=== PATIENT | female | born 1960 | race Caucasian/White ===

== ENCOUNTER 2016-11-30 07:11 | Inpatient (IN) | payer OTHER ==
[~2016-11-30] VITALS: Ht 157.5 cm; Wt 61.2 kg
--- NOTE | ~2016-11-30 | S ---
[facility] [place] [address] SURGICAL PATH RPT PROCEDURE Name: MAIDA BEE Room #: 431-P ADM IN M.R.#: [id number] Admission: 11/30/16 Date of : 64 Discharge: Report #: [id number] Path Case #: [id number] PATHOLOGY REPORT COLLECTION DATE: 12/03/2016 RECEIVED DATE: 12/03/2016 SUBMITTING PHYS: Dr. Monroe Reddy, OTHER PHYS: Dr. Francisco Javier Oquendo SPECIMEN(S) RECEIVED: A.Subcutaneous sacral fat and soft tissue B.Ileum and cecum * * * * * * * * * * * * FINAL DIAGNOSIS: A. "Subcutaneous sacral fat and soft tissue," debridement: - Skin and subcutaneous tissue with acute and chronic inflammation, necrosis, granulation tissue, fat necrosis, pseudoepitheliomatous hyperplasia and dystrophic calcification (see comment). B. "Ileum and cecum," resection: - Cecum - large bowel, 15.5 cm, showing colonic mucosa, submucosa, and muscular wall with reactive changes including pigmented lamina propria macrophages, edema, congestion, mild ischemia, and serosal reactive changes/fibrous adhesions. - Ileum - small bowel, 4.0 cm, with small bowel mucosa, submucosa, and muscular wall showing pigmented lamina propria macrophages, edema, vascular congestion, and reactive mesothelial changes. - Appendix with fibrous obliteration. COMMENT: Within specimen A, the pattern of inflammation is suggestive of necrotizing fascitis. Within specimen B, the scattered pigmented macrophages within the lamina propria of the large bowel/cecum are histologically suggestive of melanosis coli. No dysplasia is seen. Clinical and potentially endoscopic/surgical correlation is recommended. (CLW:; 12/07/2016) PATHOLOGIST: Celia Caldera M.D. REPORT ELECTRONICALLY SIGNED BY: Celia Caldera M.D. DATE/TIME: 12/07/2016 21:13 * * * * * * * * * * * * [address] [address] SURGICAL PATH RPT PROCEDURE Name: JEANNETTE BEELOREN Raphael Room #: 431-P [facility] IN ..#: [id number] Admission: 11/30/16 Date of : 64 Discharge: Report #: [id number] Path Case #: [id number] GROSS PATHOLOGY: A. The specimen is received in formalin, labeled "Maida Bee, subcutaneous sacral fat and soft tissue" are three irregular, unoriented fragments of brown menchaca, wrinkled, rubbery skin and subcutaneous tissue measuring 1.5 x 8.5 x 1.5 cm in aggregate. The skin surfaces show areas of ulceration, desiccation and necrosis. The underlying fibromuscular tissue shows areas of menchaca-green, discoloration and softening. Areas of friability and menchaca white chalky tissue are also identified. No additional abnormalities are noted. Mix House Operator sections are submitted in cassette A1. B. The specimen is received in formalin, labeled "Maida Bee, ileum and cecum" is a distended, congested right hemicolectomy specimen consisting of terminal ileum, cecum and right colon, appendix and associated adipose tissue. Each margin is closed with a line of boris. The segment of terminal ileum measures 4.0 cm in length and maximal diameter of 2.0 cm. The segment of cecum and right colon measures 15.5 cm in length with a maximum diameter 6.3 cm. The lumen contains tejada-green, semisolid fecal material. The mucosa of the terminal ileum is tejada-green, velvety and fecal stained. The cecum has a dusky, purple-red, flattened and diffusely congested appearance. The wall thickness ranges from 0.2-0.4 cm. No mass lesions are transmural defects are identified. The mucosa shows focal edematous and ragged areas. The attached appendix measures 4.5 cm in length with a maximum diameter of 0.3 cm. No distinct abnormalities are noted grossly. The present of sections are submitted as follows: B1 - proximal margin B2 - distal margin B3 - appendix B4 - ileocecal valve B5-B6 - distended cecum and right colon. (ALEX; 12/04/2016) CLINICAL HISTORY: Sacral decubitus ulcer, abdominal washout INITIAL CPT CODE(S): A; 00115 B; 27526, 64159 Professional services performed by [employer] at [address], [place] [address] Technical services performed by [employer] at [address] [place] [address], [address] [address]. MONROE REDDY [facility] [address] [place] [address] SURGICAL PATH RPT PROCEDURE Name: MAIDA BEE Room #: 431-P [facility] IN M.R.#: [id number] Admission: 11/30/16 Date of : 64 Discharge: Report #: [id number] Path Case #: [id number] [facility] [address] [address] PHONE: [phone] DIRECTOR: Gonzalez Casey M.D. * * * END OF REPORT * * *
--- NOTE | ~2016-11-30 | HC ---
[facility] [address] [address] CONSULTATION Name: GIFTY VERDIN Room #: 431-P [facility] IN .R.#: [id number] Admission: 11/30/16 Attend Phys: Sagar Cedeno MD Discharge: Date of : 64 Report #: [id number] THIS REPORT FOR: //name// CC: Ishan [facility]un[facility] hospital[facility] DATE OF SERVICE: 12/01/2016 WOUND CARE CONSULTATION REASON FOR CONSULTATION: Necrotic sacral pressure ulcer, admitted yesterday from wound care clinic. HISTORY OF PRESENT ILLNESS: The patient is an unfortunate 56-year-old woman chronically residing in [facility]. 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 She has been chronically debilitated and immobile. The patient was seen yesterday in wound care clinic, noted to have a necrotic sacral pressure sore, admitted to the hospital for IV antibiotics and possible surgical therapy. PAST MEDICAL HISTORY: Significant for encephalitis and encephalomyelitis in the past, status post cerebrovascular accident with right hemiplegia; history of respiratory infections; history of insomnia; history of muscle spasm and neck contractures; history of anxiety disorder and history of meningitis. ALLERGIES: CODEINE, OPIATE and SULFATES. HOME MEDICATIONS: Include Celexa, DuoNeb, gabapentin, hydrocodone, Maalox, Megace, meloxicam, multiple vitamins, probiotics, Tylenol and Xanax. SOCIAL HISTORY: The patient does not smoke or drink alcohol. REVIEW OF SYSTEMS: Not obtainable. The patient is nonverbal. PHYSICAL EXAMINATION: GENERAL: Shows a chronically debilitated woman with contractures of the upper and lower extremities. She is nonverbal and noncommunicative. HEENT: Mucous membranes are moist. LUNGS: Respirations are unlabored. ABDOMEN: Soft. Baclofen pump is present subcutaneously in the abdomen. EXTREMITIES: Upper and lower extremities show contracture without wounds. SKIN: Examination of the patient's lower back shows in the sacral area, a 5 cm x 4 cm salvador, malodorous, full-thickness necrotic deep tissue injury pressure sore, most consistent with likely stage IV pressure injury. There is a [facility] [address] [place] [address] CONSULTATION Name: GIFTY VERDIN Room #: 431-P [facility] IN [facility]#: [id number] Admission: 11/30/16 Attend Phys: Sagar Cedeno MD Discharge: Date of : 64 Report #: [id number] odor and localized purulence. Depth and extent of the pressure injury cannot be fully assessed from the cutaneous wound. LABORATORY DATA: White blood count 13.2, hemoglobin 8.5, hematocrit 26.1 and platelets 513,000. Sodium 139, potassium 4.1 and creatinine 0.6. White blood count on admission was 14.6. Albumin 1.8. IMPRESSION: 1. Status post cerebrovascular accident with right hemiplegia. 2. History of encephalitis and encephalomyelitis. 3. Chronic debility and immobility. 4. The patient is noncommunicative and nonverbal. 5. Severe protein-calorie malnutrition. Albumin 1.8. 6. Sacral stage IV pressure ulcer with necrosis. There is deep tissue injury with indeterminate depth of necrosis. PLAN: IV antibiotics, Zosyn and vancomycin. We will obtain consent for excisional debridement of sacral pressure ulcer in the operating room and excision of skin, subcutaneous tissue, muscle, fascia and bone to rule out osteomyelitis. This will be scheduled for 11:00 in the morning at [facility] OR by Dr. Rome Sr, on 12/02/2016. ____ Dakin's packing of the wound until surgical debridement. <ELECTRONICALLY SIGNED> By: Rome Sr MD 12/06/16 1225 1030 1054 Rome Sr MD /nt
--- NOTE | ~2016-11-30 | EKG ---
[address] [address] ELECTROCARDIOGRAM REPORT Name: VELVETGIFTY Ijeoma Room #: 431- ADM IN M.R.#: [id number] Admission: 11/30/16 Attend Phys: Sagar Cedeno MD Discharge: Date of : 64 Report #: [id number] THIS REPORT FOR: //name// [facility] Test Date: 2016-12-01 Test Time: 09:57:01 Pat Name: GIFTY VERDIN Department: Room: 431 Gender: F Grade Recorder: : [id number] Requested By: Monroe Reddy Order Number: [id number] MD: Donavon Hannah Measurements Intervals [place] Rate: 94 P: 1 OR: 125 QRS: 23 QRSD: 61 T: QT: 470 QTc: 588 Interpretive Statements Sinus rhythm Nonspecific ST and T wave abnormality Prolonged QT interval Compared to ECG 07/19/2007 20:16:16 Heart rate has slowed Nonspecific change in the ST and T-wave segments Electronically Signed On 12-02-2016 7:50:18 CDT by Donavon Hannah [email or web address] <ELECTRONICALLY SIGNED> By: Donavon Hannah MD, [facility] 12/02/16 0750 [id number] Donavon Hannah MD, [facility] /EPI
--- NOTE | ~2016-11-30 | H ---
[facility] [address] [place] [address] HISTORY AND PHYSICAL Name: GIFTY VERDIN Room #: 431-P [facility] IN .R.#: [id number] Admission: 11/30/16 Attend Phys: Sagar Cedeno MD Discharge: Date of : 64 Report #: [id number] THIS REPORT FOR: //name// CC: Ishan Briscoey [facility] DATE OF SERVICE: 11/30/2016 CHIEF COMPLAINT: Sacral decubitus ulcer. History was primarily obtained from reviewing the notes from the wound care clinic and also from the intermediate and also talking to Dr. Cedeno. The patient is nonverbal. HISTORY OF PRESENT ILLNESS: The patient is a 56-year-old female with history of encephalitis, encephalomyelitis with residual right-sided hemiplegia, bedridden, was actually evaluated by Dr. Cedeno for sacral decubitus ulcer. The patient was subsequently admitted because of the infected sacral decubitus ulcer. The patient also needs surgical debridement. The patient denies any symptom at present. No pain. No nausea or vomiting, no abdominal pain. PAST MEDICAL HISTORY: Significant for encephalitis and encephalomyelitis. Has language deficit. Insomnia, has had respiratory infection in the past, muscle spasm, ulcers, anxiety disorder, CVA and meningitis. ALLERGIES: She is allergic to CODEINE, OPIATE and SULFATE. HOME MEDICATIONS: Reviewed, please look at the nursing documentation. SOCIAL HISTORY: Ex-smoker, no alcohol abuse or illicit drug abuse. The patient is a intermediate resident. FAMILY HISTORY: Noncontributory for this admission. REVIEW OF SYSTEMS: Limited because of the patient being nonverbal. PHYSICAL EXAMINATION: VITAL SIGNS: Blood pressure 90/51, heart rate of 99 per minute, afebrile. GENERAL: The patient is awake and alert, not in acute respiratory distress. She follows some simple commands. EYES: Pupils are equal, reactive to light. THROAT: Has a dry oral mucosa. NECK: Supple. No JVD, no bruit. CARDIOVASCULAR: S1, S2, negative S3, no murmur. CHEST: Bilateral air entry present. Clear on auscultation. [facility] [address] [place] [address] HISTORY AND PHYSICAL Name: GIFTY VERDIN Room #: 431-P [facility] IN [facility]#: [id number] Admission: 11/30/16 Attend Phys: Sagar Cedeno MD Discharge: Date of : 64 Report #: [id number] ABDOMEN: Soft, bowel sounds present, no mass, no organomegaly. There is a pump on the right upper quadrant, probably a baclofen pump. PERIPHERY: No pedal edema. Dorsalis pedis 1+. NEUROLOGICAL: The patient is not able to move her lower extremity or her right upper extremity. LABORATORY DATA: Pending. ASSESSMENT AND PLAN: Sacral decubitus ulcer. The ulcer was examined by the nursing staff. It is around 5 cm with necrotic area. There is mild erythema around the ulcer. The patient will be started on IV Zosyn and vancomycin. We will get blood cultures and wound culture. We will also consult Infectious Disease and Surgery. The patient will also be hydrated with IV fluids. She will be placed on SCD on the leg for DVT prophylaxis at present. We will follow cultures and adjust antibiotic as needed. The patient will be kept n.p.o. after midnight for possible surgical debridement. <ELECTRONICALLY SIGNED> By: Francisco Javier Mckinney MD 11/30/161934 16 32 Francisco Javier Mckinney MD /nt
[2016-11-30 18:20] VITALS: BP 90/51
[2016-11-30 19:24] LABS: ABSOLUTE NEUTROPHILS 11.6 thou/uL (1.4-8.2); BASOPHILS 0.2 % (0.0-2.0); EOSINOPHILS 1.3 % (0.0-3.0); HEMATOCRIT 25.8 % (37.0-47.0); HEMOGLOBIN 8.4 gm/dL (12.0-15.0); LYMPHOCYTES 14.6 % (24.0-44.0); MCH 31.8 pg (26.0-34.0); MCHC 32.7 g/dL (28.0-37.0); MCV 97.4 fL (80.0-100.0); MONOCYTES 4.4 % (1.0-8.0); PLATELET COUNT 508 thou/uL (150-400); POLYS 79.5 % (36.0-66.0); RBC 2.65 mil/uL (4.20-5.00); RDW 16.9 % (10.5-14.5); WBC 14.6 thou/uL (4.0-11.0)
[2016-11-30 19:30] LABS: MANUAL DIFF NO
[2016-11-30 19:35] LABS: CALCIUM 8.3 mg/dL (8.5-10.1); CREATININE 0.7 mg/dL (0.6-1.0); POTASSIUM 3.8 mmol/L (3.5-5.1)
[2016-11-30 19:39] LABS: APTT 38.2 Seconds (24.5-32.8); PROTIME 10.7 Seconds (9.3-11.4)
[2016-11-30 19:43] LABS: ALBUMIN 1.8 g/dL (3.4-5.0); TOTAL BILIRUBIN 0.4 mg/dL (<0.1-1.0)
[2016-11-30 22:45] VITALS: BP 82/61
[2016-11-30] MEDS ORDERED: LIDOCAINE 22 %/30 GM MM (23:17)
[2016-11-30] MEDS ORDERED: ABILIFY 2 MG2 M1 PO (23:18)
[2016-12-01 05:55] VITALS: BP 77/48
[2016-12-01 07:08] LABS: ABSOLUTE NEUTROPHILS 10.2 thou/uL (1.4-8.2); BASOPHILS 0.3 % (0.0-2.0); HEMATOCRIT 26.1 % (37.0-47.0); HEMOGLOBIN 8.5 gm/dL (12.0-15.0); LYMPHOCYTES 17.2 % (24.0-44.0); MANUAL DIFF NO; MCH 31.7 pg (26.0-34.0); MCHC 32.7 g/dL (28.0-37.0); PLATELET COUNT 513 thou/uL (150-400); POLYS 77.5 % (36.0-66.0); RDW 16.7 % (10.5-14.5); WBC 13.2 thou/uL (4.0-11.0)
[2016-12-01 07:25] LABS: CALCIUM 8.4 mg/dL (8.5-10.1); CREATININE 0.6 mg/dL (0.6-1.0); MAGNESIUM 1.9 mg/dL (1.8-2.4); POTASSIUM 4.1 mmol/L (3.5-5.1)
[2016-12-01] MEDS ORDERED: ALBUTEROL2.5 MG/31 INH (08:39)
[2016-12-01] MEDS ORDERED: ARTIFICIAL TEA1 EACH OP (08:40)
[2016-12-01] MEDS ORDERED: LIORESAL 10 MG10 MG PO (08:41)
[2016-12-01] MEDS ORDERED: CELEXA20 MG PO (08:42)
[2016-12-01] MEDS ORDERED: DULCOLAX10 MG RC (08:44)
[2016-12-01] MEDS ORDERED: NEURONTIN 300300 M1 PO (08:45)
[2016-12-01] MEDS ORDERED: HYDROCODONE-APA1 TA1 PO (08:46)
[2016-12-01] MEDS ORDERED: MAALOX MAXIMUM355 ML PO (08:48)
[2016-12-01] MEDS ORDERED: MEGESTROL40 MG/1 M1 PO (08:50)
[2016-12-01] MEDS ORDERED: MOBIC15 MG PO (08:51)
[2016-12-01] MEDS ORDERED: MUCINEX TA600 MG/TA2 PO (08:51)
[2016-12-01] MEDS ORDERED: UNICOMPLEX M TA1 TA1 PO (08:52)
[2016-12-01] MEDS ORDERED: MUSCLE RUB CRE113 G1 TP (08:57)
[2016-12-01] MEDS ORDERED: ZANTAC 150MG T150 MG PO (09:01)
[2016-12-01] MEDS ORDERED: SENNA8.6 MG PO (09:03)
[2016-12-01] MEDS ORDERED: TRAMADOL 50 MG50 MG PO (09:04)
[2016-12-01] MEDS ORDERED: TYLENOL EXTRA500 MG PO (09:06)
[2016-12-01] MEDS ORDERED: B12INJ IM (09:06)
[2016-12-01] MEDS ORDERED: VITAMINC500 PO (09:07)
[2016-12-01] MEDS ORDERED: VOLTAREN GEL 1100 G2 TP (09:09)
[2016-12-01 09:10] VITALS: BP 91/54
[2016-12-01] MEDS ORDERED: XANAX 0.5 MG0.5 MG PO (09:10)
[2016-12-01] MEDS ORDERED: ZINC SULFATE 2220 M1 PO (09:11)
[2016-12-01 12:45] LABS: ABSOLUTE RETIC COUNT 0.0418 10^6/uL; OBSERVED RETIC COUNT 1.54 % (0.6-2.6)
[2016-12-01 13:17] LABS: % SATURATION 8 % (20-39); IRON 9 ug/dL (50-170); TIBC 107 ug/dL (250-450); UIBC 98 ug/dL
[2016-12-01 13:47] LABS: FOLIC ACID 34.2 ng/mL (8.6-58.9)
[2016-12-01 17:36] VITALS: BP 92/55
[2016-12-02 05:13] VITALS: BP 94/60
[2016-12-02 05:22] LABS: ABSOLUTE NEUTROPHILS 7.4 thou/uL (1.4-8.2); BASOPHILS 0.3 % (0.0-2.0); EOSINOPHILS 2.1 % (0.0-3.0); HEMATOCRIT 24.6 % (37.0-47.0); HEMOGLOBIN 7.9 gm/dL (12.0-15.0); MCH 31.1 pg (26.0-34.0); MCHC 32.1 g/dL (28.0-37.0); MONOCYTES 5.9 % (1.0-8.0); PLATELET COUNT 506 thou/uL (150-400); POLYS 65.7 % (36.0-66.0); RBC 2.54 mil/uL (4.20-5.00); RDW 17.2 % (10.5-14.5); WBC 11.3 thou/uL (4.0-11.0)
[2016-12-02 05:27] LABS: MANUAL DIFF NO
[2016-12-02 08:02] VITALS: BP 97/56
[2016-12-02 15:41] VITALS: BP 101/64
[2016-12-02 19:21] VITALS: BP 95/57
[2016-12-03 04:13] VITALS: BP 82/51
[2016-12-03 04:24] LABS: URINE BILIRUBIN NEGATIVE (Negative); URINE BLOOD 2+ (Negative); URINE COLOR YELLOW; URINE GLUCOSE-RANDOM* NEGATIVE (Negative); URINE KETONES NEGATIVE (Negative); URINE LEUKOCYTES-REFLEX 3+ (Negative); URINE PROTEIN (DIPSTICK) 1+ (Negative); URINE UROBILINOGEN 0.2 E.U./dl (0.2-1.0)
[2016-12-03 05:04] LABS: SQUAMOUS >10 Many /LPF (0-3); URINE WBC-REFLEX >25 Many /HPF (0-5)
[2016-12-03 05:05] LABS: CASTS None Seen /LPF (None Seen); CRYSTALS None Seen /LPF (None Seen); URINE RBC 3-10 Few /HPF (0-2)
[2016-12-03 06:21] VITALS: BP 95/58
[2016-12-03 13:59] VITALS: BP 85/59
[2016-12-03 19:25] VITALS: BP 100/57
[2016-12-04] VITALS (7 sets, daily range): BP systolic 86–95; BP diastolic 49–57
[2016-12-04 04:03] LABS: HEMOGLOBIN 6.8 gm/dL (12.0-15.0); MCHC 32.3 g/dL (28.0-37.0)
[2016-12-04 04:06] LABS: ABSOLUTE NEUTROPHILS 10.8 thou/uL (1.4-8.2); BASOPHILS 0.1 % (0.0-2.0); EOSINOPHILS 0.1 % (0.0-3.0); HEMATOCRIT 21.1 % (37.0-47.0); LYMPHOCYTES 13.9 % (24.0-44.0); MCH 31.4 pg (26.0-34.0); MCV 97.2 fL (80.0-100.0); MONOCYTES 3.2 % (1.0-8.0); POLYS 82.7 % (36.0-66.0); RBC 2.17 mil/uL (4.20-5.00); RDW 16.5 % (10.5-14.5); WBC 13.1 thou/uL (4.0-11.0)
[2016-12-04 04:14] LABS: CALCIUM 7.6 mg/dL (8.5-10.1); CREATININE 0.5 mg/dL (0.6-1.0)
[2016-12-04 04:18] LABS: MANUAL DIFF NO; PLATELET COUNT 608 thou/uL (150-400)
[2016-12-04 04:24] LABS: POTASSIUM 2.5 mmol/L (3.5-5.1)
[2016-12-04 04:48] LABS: MAGNESIUM 1.5 mg/dL (1.8-2.4)
[2016-12-05 04:30] VITALS: BP 126/74
[2016-12-05 04:32] LABS: HEMATOCRIT 26.7 % (37.0-47.0); MCH 30.5 pg (26.0-34.0); MCHC 33.5 g/dL (28.0-37.0); PLATELET COUNT 621 thou/uL (150-400); RBC 2.93 mil/uL (4.20-5.00); RDW 19.6 % (10.5-14.5); WBC 17.8 thou/uL (4.0-11.0)
[2016-12-05 04:47] LABS: CALCIUM 7.8 mg/dL (8.5-10.1); CREATININE 0.7 mg/dL (0.6-1.0); POTASSIUM 3.1 mmol/L (3.5-5.1)
[2016-12-05 05:05] LABS: MANUAL DIFF YES
[2016-12-05 07:15] LABS: ABSOLUTE NEUTROPHILS 14.6 thou/uL (1.4-8.2); ANISOCYTOSIS 2+; POLYCHROMASIA OCCASIONAL; TOTAL CELL COUNT 100
[2016-12-05 07:16] LABS: HYPOCHROMASIA SLIGHT; POIKILOCYTOSIS SLIGHT
[2016-12-05 08:15] VITALS: BP 89/55
[2016-12-05 15:35] VITALS: BP 92/66
[2016-12-05 20:06] VITALS: BP 93/59
[2016-12-05 23:12] VITALS: BP 83/52
[2016-12-06 04:17] VITALS: BP 92/57
[2016-12-06 07:26] LABS: HEMATOCRIT 31.4 % (37.0-47.0); HEMOGLOBIN 10.2 gm/dL (12.0-15.0); MCHC 32.5 g/dL (28.0-37.0); MCV 92.4 fL (80.0-100.0); RBC 3.4 mil/uL (4.20-5.00); RDW 19.9 % (10.5-14.5); WBC 21.2 thou/uL (4.0-11.0)
[2016-12-06 07:36] LABS: ALBUMIN 1.3 g/dL (3.4-5.0); CALCIUM 7.9 mg/dL (8.5-10.1); CREATININE 0.9 mg/dL (0.6-1.0); PHOSPHORUS 2.4 mg/dL (2.5-4.9); POTASSIUM 3.5 mmol/L (3.5-5.1)
[2016-12-06 09:17] VITALS: BP 99/64
[2016-12-06 17:04] VITALS: BP 107/66
[2016-12-06 22:00] VITALS: BP 121/74
[2016-12-07] VITALS (8 sets, daily range): BP systolic 87–111; BP diastolic 61–70
[2016-12-07 06:48] LABS: HEMATOCRIT 28.8 % (37.0-47.0); HEMOGLOBIN 9.3 gm/dL (12.0-15.0); MCH 29.9 pg (26.0-34.0); MCHC 32.4 g/dL (28.0-37.0); MCV 92.5 fL (80.0-100.0); RBC 3.11 mil/uL (4.20-5.00); RDW 19.9 % (10.5-14.5); WBC 14.4 thou/uL (4.0-11.0)
[2016-12-07 07:04] LABS: ALBUMIN 1.4 g/dL (3.4-5.0); CALCIUM 7.9 mg/dL (8.5-10.1); CREATININE 0.7 mg/dL (0.6-1.0); POTASSIUM 3.3 mmol/L (3.5-5.1); TOTAL BILIRUBIN 0.4 mg/dL (<0.1-1.0); TOTAL PROTEIN 5.1 g/dL (6.4-8.2)
[2016-12-08 03:47] VITALS: BP 104/66
[2016-12-08 06:24] LABS: HEMATOCRIT 31.3 % (37.0-47.0); HEMOGLOBIN 10.2 gm/dL (12.0-15.0); MCH 29.8 pg (26.0-34.0); MCHC 32.6 g/dL (28.0-37.0); MCV 91.4 fL (80.0-100.0); RBC 3.43 mil/uL (4.20-5.00); RDW 19.8 % (10.5-14.5); WBC 13.3 thou/uL (4.0-11.0)
[2016-12-08 06:31] LABS: CALCIUM 8.2 mg/dL (8.5-10.1); CREATININE 0.9 mg/dL (0.6-1.0); POTASSIUM 4.1 mmol/L (3.5-5.1)
[2016-12-08 08:43] VITALS: BP 76/59
[2016-12-08] MEDS ORDERED: FENTANYL PA25 MCG/HR TRANSDERM (10:08)
[2016-12-08] MEDS ORDERED: ZOSYN 3.373.375 GM/1 IV (10:08)
[2016-12-08 15:25] VITALS: BP 92/64
== END 2016-12-08 19:55 | DRG 853 ==
LOC: HYPER 07:11 → 4E 17:33
PROVIDERS: Hospitalist; Internal Medicine; Nurse Practitioner; Surgery
DX: A41.9 Sepsis, unspecified organism (principal); E43 Unspecified severe protein-calorie malnutrition; L89.154 Pressure ulcer of sacral region, stage 4; G93.40 Encephalopathy, unspecified; K59.39 Other megacolon; M86.9 Osteomyelitis, unspecified; I69.351 Hemiplegia and hemiparesis following cerebral infarction affecting right dominant side; F41.9 Anxiety disorder, unspecified; I95.9 Hypotension, unspecified; D64.9 Anemia, unspecified; E87.6 Hypokalemia; E87.5 Hyperkalemia; Z88.6 Allergy status to analgesic agent; Z88.8 Allergy status to other drugs, medicaments and biological substances; Z68.24 Body mass index [BMI] 24.0-24.9, adult; Z87.891 Personal history of nicotine dependence; Z88.2 Allergy status to sulfonamides
CPT/HCPCS: 10783; 27000; 50010; 50093; 50101; 50386; 50403; 50455; 51708; 51712; 53353; 53354; 56524; 56527; 56528; 57092; 62110; 62900; 70005

== ENCOUNTER 2018-08-08 05:29 | Inpatient (IN) | payer OTHER ==
[~2018-08-08] VITALS: Ht 165.1 cm; Wt 73.0 kg
[~2018-08-08 05:29] MED LIST: ABILIFY 2 MG2 M1 PO; ALBUTEROL2.5 MG/31 INH; ALPRAZOLAM 0.0.25 M1 PO; ARTIFICIAL TEA1 EACH OPHTHALMIC; B12INJ IM; BANATROL PLUS1 EACH PER TUBE; CELEXA20 MG PO; CHEST CONGESTI400 MG PO; CHOLESTYRAMINE P4 GM PO; CRANBERRY200 MG PO; DULCOLAX10 MG RC; DURAGESIC1 EAC5 TOP; FENTANYL PA25 MCG/HR TRANSDERM; HYDROCODONE-APA1 TA1 PO; ICY HOT CREAM35.4 GM TOP; IMODIUM A-D2 M1 PO; ISOSOURCE 1.5250 ML PER TUBE; JUVEN PACKET1 EAC1 PER TUBE; LIDOCAINE30 GM TOP; LIORESAL 10 MG10 MG PO; MAALOX MAXIMUM355 ML PO; MEGESTROL40 MG/1 M1 PO; MOBIC15 MG PO; MUCINEX TA600 MG/TA2 PO; MUSCLE RUB CRE113 G1 TP; NEURONTIN 300300 M1 PO; ONDANSETRON HCL4 M2 PO; OXYCODONE HCL5 MG PO; PEPCID20 MG PO; PROBIOTIC1 EAC1 PO; REFRESH PLUS1 EACH OPHTHALMIC; SENNA8.6 MG PO; TRAMADOL 50 MG50 MG PO; TYLENOL EXTRA500 MG PO; UNICOMPLEX M TA1 TA1 PO; VITAMINC500 PO; VOLTAREN GEL 1100 G2 TP; WOMEN'S GENTLE L5 MG PO; XANAX 0.5 MG0.5 MG PO; ZANTAC 150MG T150 MG PO; ZINC SULFATE 2220 M1 PO; ZOFRAN ODT4 MG DISSOLVE; ZOSYN 3.373.375 GM/1 IV
[2018-08-08 07:45] VITALS: BP 120/87
--- NOTE | 2018-08-08 08:23 | EKG ---
[address] [address] ELECTROCARDIOGRAM REPORT Name: VELVETGIFTY F Room #: 150-2 ADM IN M.R.#: [id number] ������������������ Admission: 08/08/18 ������������������ Attend Phys: Monroe Barclay Discharge: ������������������ Date of : 64 Report #: [id number] ����������������������������������������������������������������� [id number] THIS REPORT FOR: //name// [facility] Test Date: 2018-08-08 Test Time: 07:40:40 Pat Name: GIFTY VERDIN Department: Room: 150 2 Gender: F Tree Trimmer Helper: ROSY : 1960 Requested By: Monroe Reddy Order Number: [id number] MD: Larry Keller Measurements Intervals [place] Rate: 62 P: 0 CA: 58 QRS: 17 QRSD: 131 T: 62 QT: 457 QTc: 464 Interpretive Statements Sinus rhythm Short CA interval Nonspecific intraventricular conduction delay Minimal ST elevation, inferior leads Compared to ECG 12/01/2016 09:57:01 Short CA interval now present Intraventricular conduction delay now present Prolonged QT interval no longer present ST (T wave) deviation still present Electronically Signed On 08-08-2018 8:23:01 CDT by Larry Keller [email or web address] ��������������������������������������������� <ELECTRONICALLY SIGNED> ���������������������������������������� By: Larry Kelelr MD ��������������������������������������������� 08/08/1823 9 9 Larry Keller MD /EPI
[2018-08-08 15:10] VITALS: BP 95/61
--- NOTE | 2018-08-08 18:30 | NUR ---
PT RECEIVED FROM REC RM AT 1140 AWAKE AND IN SOME PAIN. SISTER AT BEDSIDE. PT ALERT AND ABLE TO NOD FOR YES AND NO QUESTIONS. WRITES SOME ON TABLET. PAIN IN RT ABD RELIEVED W/ PAIN MEDS. TURNED Q2HRS. DR. VILLALOBOS CALLED TO INFORM RN OF PLAN. RETAINED STOOL IN COLON AND WILL KEEP ON SIPS OF WATER FOR NOW W/ IV FLUIDS TO ALLOW STOOL TO PASS. ABD DSNG DRY AND INTACT.
[2018-08-08 22:45] VITALS: BP 79/38
[2018-08-09 00:37] VITALS: BP 111/50
[2018-08-09 05:40] VITALS: BP 92/55
[2018-08-09 05:45] LABS: ABSOLUTE NEUTROPHILS 7.7 thou/uL (1.4-8.2); BASOPHILS 0.1 % (0.0-2.0); EOSINOPHILS 0.1 % (0.0-3.0); HEMATOCRIT 36.3 % (37.0-47.0); HEMOGLOBIN 11.8 gm/dL (12.0-15.0); MCH 31.6 pg (26.0-34.0); MCHC 32.4 g/dL (28.0-37.0); MCV 97.5 fL (80.0-100.0); MONOCYTES 6.4 % (1.0-8.0); PLATELET COUNT 325 thou/uL (150-400); POLYS 70.4 % (36.0-66.0); RBC 3.72 mil/uL (4.20-5.00); RDW 14.3 % (10.5-14.5)
[2018-08-09 05:57] LABS: CALCIUM 8.2 mg/dL (8.5-10.1); CREATININE 0.7 mg/dL (0.6-1.0); POTASSIUM 4.4 mmol/L (3.5-5.1)
[2018-08-09 08:50] VITALS: BP 79/52
[2018-08-09 13:30] VITALS: BP 107/51
--- NOTE | 2018-08-09 14:34 | NUR ---
FAXED CLINICAL UPDATE TO [facility] LEFT MSG SPOKE WITH BRAEDEN IN ADM. SHE RECEIVED UPDATE. DCP TO FOLLOW.
--- NOTE | 2018-08-09 15:38 | NUR ---
Patient was admitted on 08/08/18 for reverse Illiostomy. patient's arm is constricted but she uses well her right hand well. Patient is NPO till she passes gas and have BM. Patient takes meds with sip of water. posision changes q2hr. patient types on her phoen to communicate. pt. ia allerted and oriented. Patient incision was draing some blood and the nurses chunged the dressing and it has been good since then.
--- NOTE | 2018-08-09 15:43 | NUR ---
I have reviewed and concur with student documentation.
--- NOTE | 2018-08-09 16:45 | NUR ---
PT IN BED TURNED EVERY 2 HOURS. GIVEN PRN PAIN MEDS, IV ACSESS CHANGED. ABD DRESSING CHANGED AND DR VILLALOBOS CALLED TO NOTIFY OF ABD DRESSING CHANGE. IV ACSESS CHANGED TO RIGHT FOREARM. PT HAS HOSPITALIST AND DR VILLALOBOS SURGEON HERE TO SEE HER TODAY.
--- NOTE | 2018-08-09 17:06 | PATH ---
[facility] [address] [place] [address] PATHOLOGY RPT PROCEDURE Name: MAIDA BEE Room #: 432-P [facility] IN M.R.#: [id number] ������������������ Admission: 08/08/18 ������������������ Date of : 64 Discharge: Report #: [id number] Path Case #: [id number] [facility] Accession Number: [id number] . 01 Material submitted: . body - ILEOSTOMY . 01 Clinical history: . Ileostomy, chronic sacral ulcer . 02 Diagnosis: Small bowel, ileostomy: - Circular defect showing reactive changes along with congestion. - Fibrosis and focal serositis identified, history of adhesions. - Margins showing unremarkable mucosa. - Negative for dysplasia or malignancy. (IUV:retail selling specialist; 08/09/2018) MBR/08/09/2018 . 02 Electronically signed: . Inga Montilla MD, Pathologist NPI- [id number] . 01 Gross description: . The specimen is received in formalin, labeled "Maida Bee, ileostomy". Received is an unoriented segment of small bowel measuring 9.6 cm in length by 1.9 cm in diameter. Both margins are stapled closed. Near one margin, there is a large circular defect, and the serosa is torn, measuring 3.5 x 2.1 cm. The remainder of the serosal surface is pink-tejada in appearance with overlying adhesions. The attached mesenteric fat measures up to 2.7 cm in thickness. Opening the specimen reveals pink-tejada mucosa with normal architectural folds. No distinct nodules or lesions are noted grossly. . Also received within the specimen container is a segment of small bowel measuring 1.8 cm in length by 2.2 cm in diameter. One margin is stapled. The opposite margin displays exposed red-tejada mucosa, consistent with stoma, measuring 3.3 x 2.3 cm. The specimen is submitted representatively as follows: . A1 both margins from segment of small bowel A2 international representative sections through circular defect of small bowel A3 international representative cross-sections of small bowel A4 international representative section of separately submitted stoma. . Gross photographs are taken. (CAA; 08/08/2018) [address] [address] PATHOLOGY RPT PROCEDURE Name: MAIDA BEE Room #: 432-P ADM IN M.R.#: [id number] ������������������ Admission: 08/08/18 ������������������ Date of : 64 Discharge: Report #: [id number] Path Case #: [id number] QAC/QAC . 02 Pathologist provided ICD-10: K65.8 . 02 CPT . 520863 Specimen Comment: A courtesy copy of this report has been sent to Specimen Comment: [phone], . Specimen Comment: Report sent to / DR MUSTAFA Performed at: [address], [place], [place] [id number] MD Christiano Estrada MD Phone: [phone] Performed at: [address] [id number] MD Inga Montilla MD Phone: [phone]
[2018-08-09 20:45] VITALS: BP 87/47
[2018-08-09 23:00] VITALS: BP 89/49
[2018-08-10 05:33] LABS: BASOPHILS 0.3 % (0.0-2.0); EOSINOPHILS 0.2 % (0.0-3.0); HEMATOCRIT 26.9 % (37.0-47.0); LYMPHOCYTES 19.2 % (24.0-44.0); MCH 31.9 pg (26.0-34.0); MCHC 33.1 g/dL (28.0-37.0); MCV 96.6 fL (80.0-100.0); PLATELET COUNT 275 thou/uL (150-400); POLYS 74.3 % (36.0-66.0); RBC 2.78 mil/uL (4.20-5.00); RDW 14.2 % (10.5-14.5); WBC 10.8 thou/uL (4.0-11.0)
[2018-08-10 05:37] LABS: HEMOGLOBIN 8.9 gm/dL (12.0-15.0)
[2018-08-10 05:38] LABS: CALCIUM 8.1 mg/dL (8.5-10.1); CREATININE 0.5 mg/dL (0.6-1.0)
[2018-08-10 05:41] LABS: POTASSIUM 3.4 mmol/L (3.5-5.1)
[2018-08-10 07:51] LABS: APTT 33.1 Seconds (24.5-32.8); PROTIME 10.8 Seconds (9.3-11.4)
[2018-08-10 09:14] VITALS: BP 86/48
--- NOTE | 2018-08-10 10:39 | NUR ---
PT ADMITTED RELATED TO OPEN ILEOSTOMY REVERSAL. CM REVIEWED CHART AND SPOKE WITH CARE TEAM. 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 SHE INDICATED THAT PT HAD USED A WHEELCHAIR AND A RICKY LIFT TO GET ASSISTANCE WITH MOBILITY CONVERTIBLE SOFA BEDSPRING TESTER. PREET INDICATED PLAN IS FOR PT TO RETURN TO [facility] ONCE MEDICALLY STABLE. CM REQUESTED THAT DC CREEL CLERK FAX CLINICAL UPDATE TO FACILITY. CM TO FOLLOW INDICATED WITH DC PLANNING.
[2018-08-10 12:14] VITALS: BP 124/56; BP 95/60
[2018-08-10 19:25] VITALS: BP 120/64
--- NOTE | 2018-08-10 19:57 | NUR ---
PT A&OX3, NON VERBAL. IV INTACT IN R HAND INFUSING FLUIDS W/O COMPS. NON AMB., PT HAD BLEEDING FROM INCISION LAST NOC THOUGH NO FURTHER BLEEDING SINCE MY COMPRESS DRSG CHANGE THIS AM. SUPPOSITORY GIVEN WITH NO RESULTS. 1 UNIT PACKED RED BLOOD CELLS GIVEN ORDERED. PLANS ARE TO START PT ON A DIET TOMMARO.
--- NOTE | 2018-08-11 01:35 | NUR ---
PT NOT SLEEPING, VERY ANXIOUS, TURNED AND REPOSITIONED AND GETS UPSET EASILY IF HER NEEDS ARE NOT UNDERSTOOD DUE TO COMMUNICATION BARRIER. BOTH FEET ON OFF CORRECTIONAL PROGRAM OFFICER BOOTS, SCDS TOBLE, INCONTINENT, PERICARE GIVEN, TOOK MEDS WHOLE WITH SIP OF WATER, COMMUNICATE USING TEXT VIA PHONE, ALERT/ORIENTED, ORAL CARE GIVEN, HOURLY ROUNDING, MONITORED.
[2018-08-11 04:36] VITALS: BP 124/76
[2018-08-11 05:11] LABS: ABSOLUTE NEUTROPHILS 7.8 thou/uL (1.4-8.2); BASOPHILS 0.2 % (0.0-2.0); EOSINOPHILS 1.4 % (0.0-3.0); HEMATOCRIT 31.4 % (37.0-47.0); HEMOGLOBIN 10.5 gm/dL (12.0-15.0); LYMPHOCYTES 16.3 % (24.0-44.0); MCH 31.3 pg (26.0-34.0); MCHC 33.4 g/dL (28.0-37.0); MCV 93.7 fL (80.0-100.0); MONOCYTES 5.7 % (1.0-8.0); PLATELET COUNT 300 thou/uL (150-400); POLYS 76.4 % (36.0-66.0); RBC 3.35 mil/uL (4.20-5.00); RDW 15.3 % (10.5-14.5); WBC 10.2 thou/uL (4.0-11.0)
[2018-08-11 05:25] LABS: CALCIUM 8.5 mg/dL (8.5-10.1); CREATININE 0.5 mg/dL (0.6-1.0); POTASSIUM 3.3 mmol/L (3.5-5.1)
[2018-08-11 08:11] VITALS: BP 103/55
[2018-08-11 16:22] VITALS: BP 107/61
[2018-08-11 20:18] VITALS: BP 117/72
--- NOTE | 2018-08-12 04:48 | NUR ---
ASSUMED CARE AT START OF SHIFT PT INCONINTNET WITH LARGE AMOUNT OF CHANTALE URINE, FEMALE CATHETER APPLIED, PT TURNED EVERY 2 HOURS TOLERATED WELL PAIN MEDICATION GIVEN REQUEST AND PRESCRIBED, RESTED WELL THROUGHIUT HOURLY ROUNDS NO CONCERNS NOTED.
[2018-08-12 05:40] VITALS: BP 113/60
[2018-08-12 07:42] VITALS: BP 99/54
--- NOTE | 2018-08-12 16:04 | NUR ---
Following for d/c planning needs. Pt is not medically ready for d/c today. Spoke with video production coordinator at [facility]. Will remain available to assist as needed. [facility] [phone]
[2018-08-12 16:52] VITALS: BP 103/59
--- NOTE | 2018-08-12 19:35 | NUR ---
ASSUMED CARE OF PT AT 0700. ASSESSMENT COMPLETED. NONVERBAL AT BASELINE, ALERT TO PERSON, PLACE, AND SITUATION. PT MAKES NEEDS KNOWN. C/O CHRONIC LEG PAIN AND ACUTE ABD PAIN, PAIN MEDS GIVEN ORDERED. ROOM AIR. NO SOA OR CHEST PAIN. HYPOACTIVE BOWEL SOUNDS. G TUBE PATENT. ABD DRESSING WITH MITCHELL C/D/I. SUPPOSITORY GIVEN TO PROMOTE BM, NO STOOL NOTED SINCE SURGERY. PT C/O OF NEW ONSET HEARTBURN, PHYSICIAN NOTIFIED. NEW ANTACID MEDS ORDERED. NO OTHER CHANGE IN STATUS.
[2018-08-12 20:40] VITALS: BP 106/51
[2018-08-13 03:35] VITALS: BP 98/58
--- NOTE | 2018-08-13 04:33 | NUR ---
PATIENT IS ALERT AND ORIENTED. PATIENT CAN VERBALIZED NEEDS BUT CAN BE DIFFICULT TO UNDERSTAND AT TIMES. PATIENT IS Q2TURN. CONTRACTIONS TO LT HAND. PATIENT IS ROOM AIR. PATIENT HAS HX OF OLD CVA AND HAS RT SIDED WEAKNESS AND WEAKNESS TO NO CONTROL IN LOWER EXTREMITIES. PATIENT IS INCONTIENT. PATIENT CAN BE ANXIOUS. PATIENT HAS 2(+) EDEMA TO LOWER EXTREMITIES. BOOTS ON, Q2 TURN. PATIENTS INCISION IS WELL APPROXIMATED AND DRESSING INTACT. PATIENT IS A FEEDER. PATIENT HAS PEG TUBE FOR HYDRATION AND MEDS BUT CAN HAVE PO INTAKE (CLEAR LIQUIDS). PATIENT IS PASSING GAS AND HAD A SMEAR BUT NO BM POSTOP YET. PATIENTS PAIN IS CONTROLLED WITH REPOSITIONING AND MEDICATION. PATIENT IS RESTING COMFORTABLY IN BED. WCM. PATIENT IS PROGRESSING TO GOALS.
[2018-08-13 05:57] LABS: CALCIUM 8.1 mg/dL (8.5-10.1); CREATININE 0.4 mg/dL (0.6-1.0); MAGNESIUM 1.5 mg/dL (1.8-2.4); TOTAL PROTEIN 5.4 g/dL (6.4-8.2)
[2018-08-13 10:20] VITALS: BP 115/70
[2018-08-13 16:30] VITALS: BP 110/65
--- NOTE | 2018-08-13 19:43 | NUR ---
ASSUMED CARE OF PT AT 0700. ASSESSMENT COMPLETED. PT ABLE TO COMMUNICATE THROUGH WRITING, MAKES NEEDS KNOWN. CALL LIGHT WITHIN REACH. LOW K+ AND MG+, REPLACEMENT GIVEN ORDERED. C/O BACK PAIN, POSITIONING AND PAIN MEDS GIVEN ORDERED. ABD DRESSING CHANGED TODAY BY DR. MUSTAFA ORDERS, C/D/I. G TUBE PRESENT. INCONTINENT, FOUL SMELLING URINE. SMALL LIQUID BM STOOL NOTED. NO OTHER CHANGE IN STATUS.
[2018-08-13 21:15] VITALS: BP 102/52
[2018-08-14 02:50] VITALS: BP 94/60
--- NOTE | 2018-08-14 07:40 | NUR ---
PT LYING IN BED. TRAMADOL PROVIDING PAIN RELIEF. INCONTINENT. Q2 TURNS. RESTING COMFORTABLY. NO NEEDS VOICED. CALL LIGHT WITHIN REACH. WILL CONTINUE TO PROVIDE FREQUENT OBSERVATION.
[2018-08-14 07:42] VITALS: BP 110/61
[2018-08-14 11:38] LABS: URINE BILIRUBIN 2+ (Negative); URINE BLOOD TRACE (Negative); URINE CLARITY CLEAR; URINE COLOR YELLOW; URINE GLUCOSE-RANDOM* NEGATIVE (Negative); URINE KETONES 3+ (Negative); URINE NITRITE-REFLEX NEGATIVE (Negative); URINE PROTEIN (DIPSTICK) 1+ (Negative)
[2018-08-14 11:44] LABS: URINE LEUKOCYTES-REFLEX 3+ (Negative)
[2018-08-14 12:41] LABS: AMORPHOUS PHOSPHATES Many /LPF (None Seen); BACTERIA-REFLEX >30 Many /HPF (None Seen); CASTS None Seen /LPF (None Seen); CRYSTALS None Seen /LPF (None Seen); SQUAMOUS 0-3 Few /LPF (0-3); TRIPLE PHOSPHATE CRYSTALS >10 Many /LPF (None Seen); URINE RBC 0-2 Rare /HPF (0-2)
--- NOTE | 2018-08-14 15:14 | NUR ---
ASSUMED CARE OF PT AT 0700. ASSESSMENT COMPLETED. PT ABLE TO COMMUNICATE IN WRITING, AT BASELINE. ROOM AIR. G TUBE IN PLACE. ABD DRESSING, C/D/I. PT INCONTINENT, STRONG FOUL URINE ODOR NOTED, PHYSICIAN NOTIFIED, ORDER FOR UA VIA STRAIGHT CATH OBTAINED. NO BM, FLEETS ENEMA GIVEN ORDERED. FRIEND VISITED AT BEDSIDE THIS AFTERNOON. NO OTHER CHANGE IN STATUS.
[2018-08-14 15:52] VITALS: BP 109/66
[2018-08-14 20:13] VITALS: BP 106/70
[2018-08-15 05:19] LABS: ABSOLUTE NEUTROPHILS 8.2 thou/uL (1.4-8.2); BASOPHILS 0.5 % (0.0-2.0); EOSINOPHILS 1.6 % (0.0-3.0); HEMATOCRIT 28.9 % (37.0-47.0); HEMOGLOBIN 9.4 gm/dL (12.0-15.0); MCH 30.6 pg (26.0-34.0); MCHC 32.4 g/dL (28.0-37.0); MCV 94.3 fL (80.0-100.0); MONOCYTES 4.4 % (1.0-8.0); PLATELET COUNT 406 thou/uL (150-400); POLYS 73.5 % (36.0-66.0); RBC 3.06 mil/uL (4.20-5.00); RDW 14.9 % (10.5-14.5); WBC 11.2 thou/uL (4.0-11.0)
[2018-08-15 05:22] VITALS: BP 119/61
[2018-08-15 05:27] LABS: CALCIUM 7.7 mg/dL (8.5-10.1); CREATININE 0.4 mg/dL (0.6-1.0); POTASSIUM 3.1 mmol/L (3.5-5.1)
--- NOTE | 2018-08-15 07:38 | NUR ---
PT LYING IN BED. REMAINS INCONTINENT. TRAMADOL PROVIDING PAIN RELIEF. RESTING COMFORTABLY. NO NEEDS VOICED. CALL LIGHT WITHIN REACH. WILL CONTINUE TO PROVIDE FREQUENT OBSERVATION.
[2018-08-15 08:29] VITALS: BP 105/61
--- NOTE | 2018-08-15 10:44 | NUR ---
Nutrition: assess d/t LOS. Pt admitted for ileostomy reversal; hx of dysphagia. Pt is non-verbal. G-tube in place, but on clear liquid diet w/ HTL. Suspected aspiration after diet changed to PO, speech therapy recommended HTL and pureed diet once PO intake resumes. Per nursing, pt tolerating diet so far otherwise. Pt wt is up 25 lbs in ~2 years. Will need to follow for diet advancement. Consider low nutrition risk at this time.
--- NOTE | 2018-08-15 12:07 | NUR ---
PT A&OX4, IV INTACT IN R FA. NON AMB. PT HAS NOT HAD BM SINCE SURGERY, ABD IS DISTENDED AND IS PASSING GAS. MINERAL OIL GIVEN ODERED. DENIES PAIN OR N/V. WILL CONT POC.
[2018-08-15 17:03] VITALS: BP 100/56
--- NOTE | 2018-08-15 17:04 | NUR ---
PT. RESIDES AT [facility] FAXED CLINICAL UPDATE TO FACILITY LEFT MS WITH ADM. THAT UPDATE FAXED. DCP TO FOLLOW.
[2018-08-15 19:58] VITALS: BP 101/61
--- NOTE | 2018-08-15 20:03 | NUR ---
PT HAD A LARGE LOOSE STOOL X3 THIS PM.
[2018-08-16 04:59] VITALS: BP 98/65
--- NOTE | 2018-08-16 05:46 | NUR ---
Assumed care of pt at 1900. Pt q2h turn. Had 3 large loose stools overnight. Pain controlled. Prefo boots in place. Incontinent of b&b. Peg tube in place. Dressing on abdomen intact. Meds crushed in apple sauce. Call light within reach. Will continue to monitor and assist with needs.
[2018-08-16 07:27] VITALS: BP 109/62
--- NOTE | 2018-08-16 13:30 | NUR ---
PATIENT CAN VERBALIZE NEEDS BUT IS DIFFICULT TO UNDERSTAND. USES PHONE/TEXT MESSAGES TO CONVEY HER WANTS. STATES SHE WANTS TO GO HOME. Q2 TURNS. INCONTINENT OF BOWEL AND BLADDER. MEDICATIONS GIVEN WHOLE IN APPLESAUCE OR WITH PEG TUBE. CALL LIGHT WITHIN REACH.
--- NOTE | 2018-08-16 14:03 | NUR ---
I have reviewed and concur with student documentation.
--- NOTE | 2018-08-16 15:39 | NUR ---
Following for d/c planning needs. Pt may be medically ready for d/c on Wednesday. Called [facility] and spoke with service coordinator elderly facility. They have a w/c van and will be able to provide transportation at 1100. Chart to be copied and sent with pt. Will fax orders to facility when available. [facility] [phone]; fax [phone]
[2018-08-16 15:52] VITALS: BP 119/62
[2018-08-16 20:30] VITALS: BP 112/57
[2018-08-17 05:23] LABS: CREATININE 0.4 mg/dL (0.6-1.0); POTASSIUM 3.5 mmol/L (3.5-5.1)
--- NOTE | 2018-08-17 05:58 | NUR ---
LESS ANXIOUS TONIGHT, STILL INCONTINENT OF B/B, SMALL BM LAST NOC, TURNED AND REPOSITIONED, COCCYX NOTED WITH STARTING PRESSURE SORE, PICTURE OBTAINED, WOUND TEAM CONSULT ORDERED, CREAM APPLIED, TOLERATING NECTAR THICK FLUIDS, SCDS TO BLE, DRESSING TO INCISION CDI, PEG TUBE REMAINS CLAMPED, TAKING ORAL PILLS WITH NO DIFFICULTY, HOURLY ROUNDING, MONITORED.
[2018-08-17 06:10] VITALS: BP 111/68
[2018-08-17 08:00] VITALS: BP 103/60
[2018-08-17] MEDS ORDERED: TRAMADOL 50 MG50 MG PO (10:17)
[2018-08-17] MEDS ORDERED: NEURONTIN 300300 M1 PO (10:18)
[2018-08-17] MEDS ORDERED: ALPRAZOLAM 0.0.25 M1 PO (10:19)
[2018-08-17] MEDS ORDERED: CEFUROXIME250 MG PO (10:19)
--- NOTE | 2018-08-17 11:43 | NUR ---
PT. DISCHARGING TODAY TO [facility] FAXED DC ORDERS/SUMMARY TO FACILITY ARRANGED TRANSPORT VIA [facility]ROUGH [facility] TRIP #[id number] TO PICK PT. UP BY 1340 TODAY ALSO LET [employer] THAT PT. HAS A WC TO TRANSPORT ALSO. UNIT NOTIFIED AND CHART COPY PER US. RN TO CALL REPORT TO [phone].
[2018-08-17 12:40] VITALS: BP 107/69
--- NOTE | 2018-08-17 14:00 | NUR ---
Assumed pt care at 7am.Pt in bed resting in bed most of the time this shift. Assessment completed.vss.am meds given with breakfast and well tolerated. Dr Clements rounded on pt and dc order noted.Report off to Tamiko patel at [facility].At 1400,pt left per ambulance in stable condition.
== END 2018-08-17 14:00 | DRG 329 ==
LOC: TBA 05:29 → 4E 05:29 → PRE 09:25 → 4E 11:54
PROVIDERS: Hospitalist; Surgery; ADMIT Surgery
DX: Z43.2 Encounter for attention to ileostomy (principal); E43 Unspecified severe protein-calorie malnutrition; D62 Acute posthemorrhagic anemia; N39.0 Urinary tract infection, site not specified; I69.351 Hemiplegia and hemiparesis following cerebral infarction affecting right dominant side; K43.2 Incisional hernia without obstruction or gangrene; E87.6 Hypokalemia; F32.9 Major depressive disorder, single episode, unspecified; M19.90 Unspecified osteoarthritis, unspecified site; R13.10 Dysphagia, unspecified; F41.9 Anxiety disorder, unspecified; Z87.11 Personal history of peptic ulcer disease
CPT/HCPCS: 10783; 50010; 50093; 50101; 50386; 51412; 51435; 51708; 51712; 56527; 56528; 56639; 57092; 62110; 62900; 70005

== ENCOUNTER 2021-04-29 22:02 | Inpatient (IN) | payer OTHER ==
[~2021-04-29] VITALS: Ht 167.6 cm; Wt 71.7 kg
[~2021-04-29 22:02] MED LIST changes: +CEFUROXIME250 MG PO
[2021-04-29 23:00] VITALS: BP 120/72
--- NOTE | 2021-04-30 00:53 | NUR ---
PT WAS TRANSFERRED TO THE UNIT FROM [facility] IN A STABLE CONDITION.ADMISSION PARTIALLY COMPLETED WITH PT.CALLED PT'S DPOA,DID NOT SIDING APPLICATOR,WILL TRY AGAIN.PT HAS A LARGE MIDLINE UPPER ABD VENTRAL HERNIA.IMPLANTED BACLOFEN PUMP NOTED TO HER R ABD.L ARM CONTRACTED.PT HAS SACRAL ULCER AND R HIP WOUND,DRSG DONE.PT WITH APHASIA AND DYSPHAGIA DUE TO PREVIOUS CVA.BLE EDEMA NOTED.PT NPO SINCE ADMIT PER CONTINUOUS IMPROVEMENT COORDINATOR ON DUTY.PT HAS GREEN RESIDUE ON HER BLE AND R ARM,PT STATED THAT IT WAS FROM HER USING BIOFREEZE FOR PAIN.PT ABLE TO ANSWER YES/NO ANSWER.SR ON TELE.CALL LIGHT WITHIN REACH
[2021-04-30 02:24] LABS: HEMATOCRIT 30.3 % (37.0-47.0); HEMOGLOBIN 9.4 gm/dL (12.0-15.0); MCHC 31.1 g/dL (28.0-37.0); RBC 3.37 mil/uL (4.20-5.00); RDW 16.8 % (10.5-14.5)
[2021-04-30 02:50] LABS: CALCIUM 8.4 mg/dL (8.5-10.1); CREATININE 0.5 mg/dL (0.6-1.0); POTASSIUM 3.8 mmol/L (3.5-5.1)
[2021-04-30 02:56] LABS: ALBUMIN 1.4 g/dL (3.4-5.0); TOTAL BILIRUBIN 0.5 mg/dL (0.2-1.0); TOTAL PROTEIN 5.8 g/dL (6.4-8.2)
[2021-04-30 04:56] VITALS: BP 103/62
[2021-04-30 08:28] VITALS: BP 102/64
--- NOTE | 2021-04-30 11:18 | EKG ---
[address] [address] ELECTROCARDIOGRAM REPORT Name: VELVETGIFTY F Room #: 218-P ADM IN M.R.#: [id number] Admission: 04/29/21 Attend Phys: Daniele Menezes MD Discharge: Date of : 64 Report #: [id number] [facility] Test Date: 2021-04-30 Test Time: 08:51:18 Pat Name: GIFTY VERDIN Department: Room: 218 Gender: F Networking Technician: CASSI : [id number] Requested By: Marlo Brennan Order Number: [id number] MD: Arcenio Woodruff Measurements Intervals [place] Rate: 87 P: 48 ME: 150 QRS: 9 QRSD: 69 T: 204 QT: 459 QTc: 553 Interpretive Statements Sinus rhythm Low voltage, precordial leads Nonspecific T abnormalities, lateral leads Compared to ECG 08/08/2018 07:40:40 Low QRS voltage now present Short ME interval no longer present Intraventricular conduction delay no longer present ST (T wave) deviation no longer present Electronically Signed On 04-30-2021 11:17:54 SEATING AND MOBILITY TECHNOLOGIST by Arcenio Woodruff [email or web address] <ELECTRONICALLY SIGNED> By: Arcenio Woodruff MD, [facility] 04/30/21 [phone] Arcenio Woodruff MD, [facility] /EPI
[2021-04-30 12:01] VITALS: BP 106/61
--- NOTE | 2021-04-30 12:13 | NUR ---
Case opened to follow for dc planning. Pt is a watermelon inspector care resident at [facility]. Her sister Kika Mercado is her legal guardian and she is aware of the pt's admission. Kika confirmed her contact number and indicates her other sisters might call in for updates as well. The pt is normally w/c bound, yumiko lift for transfers, able to do some upper body adl's and can text on her cell phone to sisters. She is disabled from a stroke. She is vaccinated x 2 for covid. Her covid test is pending and the admissions dir at the [facility] indicates they have a number of active cases in their building. They are faxing a copy of her guardianship paperwork for her chart. They are holding her bed and can accept her for readmission when medically ready. Pt's sister Kika is anticipating a call from CTS consult. Clinical update faxed to Jamilah in admissions. Will follow to assist with her return to the correction when medically ready.
[2021-04-30 16:09] VITALS: BP 125/67
--- NOTE | 2021-04-30 19:30 | NUR ---
VS stable, afebrile, SR on monitor. Pt has difficulty making needs known. Pt reports having pain - managed with fentynal Q3. Pt was NPO until dinner. Pt was able to eat dinner with honey thickened liquids. Pt coughs when eating and drinking. ST consulted. Pt will be NPO after midnight in preprtion for surgery 05/01/21 - communicated to assistant casino shift manager. Continue to monitor.
[2021-04-30 21:00] VITALS: BP 102/55
[2021-05-01 03:19] LABS: HEMATOCRIT 28.4 % (37.0-47.0); HEMOGLOBIN 8.8 gm/dL (12.0-15.0)
[2021-05-01 03:21] LABS: MCH 27.8 pg (26.0-34.0); MCHC 30.9 g/dL (28.0-37.0); RBC 3.15 mil/uL (4.20-5.00); RDW 16.9 % (10.5-14.5); WBC 22.4 thou/uL (4.0-11.0)
[2021-05-01 03:25] LABS: INR 1.3
[2021-05-01 03:26] LABS: CALCIUM 7.8 mg/dL (8.5-10.1); CREATININE 0.5 mg/dL (0.6-1.0); POTASSIUM 3.1 mmol/L (3.5-5.1)
[2021-05-01 04:57] VITALS: BP 134/90
--- NOTE | 2021-05-01 07:44 | HC ---
[facility] [place] [address] CONSULTATION Name: GIFTY VERDIN Room #: 218-P ADM IN M.R.#: [id number] Admission: 04/29/21 Attend Phys: Daniele Menezes MD Discharge: Date of : 64 Report #: [id number] THIS REPORT FOR: cc: Rich Wong James L. DO Barry, Joseph W. MD ~ DATE OF SERVICE: 04/30/2021 INFECTIOUS DISEASE CONSULTATION NOTE ATTENDING PHYSICIAN: Dr. Menezes. REASON FOR EVALUATION: Left-sided empyema. HISTORY OF PRESENT ILLNESS: Chart reviewed. The patient examined. This is a 60-year-old woman that is quite debilitated, had previous stroke, has expressive aphasia, seemingly has significantly limited mobility, who resides in a facility. She was felt not to be her normal self. Laboratory evaluation noted a markedly elevated CBC to 21,000. This prompted further investigation with chest x-ray followed by CT showed large loculated fluid in the left chest. This was suspicious for empyema. Per report did undergo aspiration of purulent material, those results are not available in review of all the records. She was transferred for ongoing care, empirically started on combination therapy with vancomycin and Zosyn. Followup chest x-ray noted a large complex fluid collection. Followup CBC showed a white count of 17,000, platelet count of 882. PHYSICAL EXAMINATION: VITAL SIGNS: Temperature 97.5, pulse 88, respirations 17, blood pressure is 106/61. NECK: Appears to be supple. She is currently on room air. LUNGS: Diminished on the left. Few scattered coarse breath sounds. HEART: Distant. I do not appreciate a murmur. ABDOMEN: Mildly distended, somewhat firm. No peritoneal signs. GENITOURINARY AND RECTAL: Deferred. LABORATORY DATA: CBC, his repeat white count 17.0, H and H 9.4 and 30.3, platelets of 882. Sodium 139, potassium 3.8, chloride 105, bicarbonate 23, anion gap of 11. BUN and creatinine of 11 and 0.5. Albumin 1.4, total protein 5.8. LFTs unremarkable. Chest x-ray showed large-complex left pleural effusion, noted consultation with Thoracic Surgery. ASSESSMENT AND PLAN: Left-sided pleural effusion. She is chronically ill. She is not overtly toxic at this point, noted transferred for more definitive treatment. We will continue empiric therapy, reasonable coverage with [address] [address] CONSULTATION Name: GIFTY VERDIN Room #: 218-P ADM IN [facility].#: [id number] Admission: 04/29/21 Attend Phys: Daniele Menezes MD Discharge: Date of : 64 Report #: [id number] vancomycin and Zosyn. Noted potential for bronchoscopy and left-sided video-assisted thoracoscopy, possible thoracotomy, decortication. We will try to obtain records from [facility] for any of the latest culture results. <ELECTRONICALLY SIGNED> By: Ishan Perea MD 05/01/21 0744 [id number] Ishan Perea MD /nt
[2021-05-01 08:15] VITALS: BP 126/70
[2021-05-01 11:52] LABS: URINE BILIRUBIN NEGATIVE (Negative); URINE BLOOD 3+ (Negative); URINE CLARITY CLOUDY; URINE COLOR YELLOW; URINE GLUCOSE-RANDOM* NEGATIVE (Negative); URINE KETONES 1+ (Negative); URINE LEUKOCYTES-REFLEX 3+ (Negative); URINE NITRITE-REFLEX NEGATIVE (Negative); URINE PROTEIN (DIPSTICK) TRACE (Negative); URINE SPECIFIC GRAVITY >= 1.030 (1.005-1.035); URINE UROBILINOGEN 0.2 E.U./dl (0.2-1.0)
[2021-05-01 11:56] LABS: CASTS None Seen /LPF (None Seen); CRYSTALS None Seen /LPF (None Seen); SQUAMOUS None Seen /LPF (0-3); URINE RBC >20 Many /HPF (NONE SEEN); URINE WBC-REFLEX >25 Many /HPF (0-5)
--- NOTE | 2021-05-01 12:49 | NUR ---
SPOKE WITH DR. DUQUE WHILE ON FLOOR ABOUT PATIENTS HEART RATE GOING INTO THE 160s. DR DUQUE STATES HE WILL ADDRRESS THE ISSUE. WCTM
--- NOTE | 2021-05-01 19:28 | NUR ---
PT ARRIVED TO ICU FROM PACU AT 1510 ACCOMPANIED BY NURSING STAFF. PT HAS RIGHT RADIAL ART LINE. PT HAS FOUR CHEST TUBES AT THE LEFT LATERAL WALL TO -20CM SUCTION. CHEST TUBE OUTPUT MARKED WITH TECHNOLOGY MANAGER AT BEDSIDE AND DRESSING WAS CHECKED. PT HAS A LEFT UPPER BACK INCISION FROM THE SURGERY. PT HAS TWO PRESSURE ULCERS AT THE SACRUM AND THE RIGHT HIP. PICTURES WERE TAKEN. MEPEPLEX WAS PLACED. PT WAS GIVEN FENTANYL FOR PAIN UPON ARRIVAL TO ICU. FAMILY SISTER DARÍO WAS NOTIFIED OF PATIENT ARRIVAL TO THE ICU.
[2021-05-01 21:47] VITALS: BP 94/52
[2021-05-01 22:47] VITALS: BP 86/56
[2021-05-01 23:37] VITALS: BP 95/59
[2021-05-02] VITALS (23 sets, daily range): BP systolic 81–121; BP diastolic 39–75
[2021-05-02 04:04] LABS: CREATININE 0.3 mg/dL (0.6-1.0)
[2021-05-02 04:15] LABS: CALCIUM 5.6 mg/dL (8.5-10.1); POTASSIUM 2.3 mmol/L (3.5-5.1)
[2021-05-02 04:17] LABS: MCH 27.9 pg (26.0-34.0); MCHC 30.3 g/dL (28.0-37.0); MCV 91.9 fL (80.0-100.0); RBC 1.9 mil/uL (4.20-5.00); RDW 16.5 % (10.5-14.5); WBC 20.2 thou/uL (4.0-11.0)
--- NOTE | 2021-05-02 04:21 | NUR ---
This RN spoke to CALIN Sexton at 0420 regarding critical potassium and calcium. No orders received, physician to look at chart. Will continue to monitor.
[2021-05-02 06:04] LABS: HEMOGLOBIN 5.3 gm/dL (12.0-15.0)
[2021-05-02 06:05] LABS: HEMATOCRIT 17.5 % (37.0-47.0)
--- NOTE | 2021-05-02 06:35 | NUR ---
This RN called critical Hmg and Hct to Barrera Sexton NP at 0614. Orders for 1 unit PRBC. Pt not progressing towards goals.
--- NOTE | 2021-05-02 06:36 | NUR ---
This RN attempted to call pts legal guardian Kika Moles at 0630 in attempt to get consent for medical records and blood.
--- NOTE | 2021-05-02 06:57 | NUR ---
This RN spoke to Jeanette Soares, patients other legal quargian/sister at 0645. Obtained consent for blood product and release of medical records from [facility].
--- NOTE | 2021-05-02 11:39 | NUR ---
Pt remains in the ICU s/p rt thoracotomy. Chest tube in place. Pt failed swallow eval and high risk for aspiration. Peg placement being discussed with pt and the attending to call her sister/guardian. Update faxed to [facility]. No weekend dc anticipated. Will follow.
[2021-05-02 15:10] LABS: HEMATOCRIT 27.4 % (37.0-47.0)
[2021-05-02 15:11] LABS: HEMOGLOBIN 8.3 gm/dL (12.0-15.0)
[2021-05-03] VITALS (23 sets, daily range): BP systolic 94–121; BP diastolic 45–71
[2021-05-03 05:37] LABS: HEMOGLOBIN 7.9 gm/dL (12.0-15.0); MCH 26.5 pg (26.0-34.0); MCHC 29.2 g/dL (28.0-37.0); MCV 90.7 fL (80.0-100.0); RBC 2.97 mil/uL (4.20-5.00); RDW 16.6 % (10.5-14.5); WBC 16.3 thou/uL (4.0-11.0)
[2021-05-03 05:51] LABS: CREATININE 0.5 mg/dL (0.6-1.0); MAGNESIUM 2.3 mg/dL (1.8-2.4); POTASSIUM 3.8 mmol/L (3.5-5.1)
[2021-05-03 06:11] LABS: CALCIUM 7.6 mg/dL (8.5-10.1)
--- NOTE | 2021-05-03 14:01 | HC ---
[facility] [place] [address] CONSULTATION Name: GIFTY VERDIN Room #: 251-P ADM IN M.R.#: [id number] Admission: 04/29/21 Attend Phys: Daniele Menezes MD Discharge: Date of : 64 Report #: [id number] THIS REPORT FOR: cc: Rich Wong James L. DO McElhinney, Christian C. MD ~ cc: Darrin Finley MD, Jeff Landa MD, Ishan Perea MD DATE OF SERVICE: 05/03/2021 HISTORY OF PRESENT ILLNESS: The patient is a 60-year-old female with multiple medical problems including previous history of CVA, left hemiparesis, aphasia or partial aphasia as well as other multiple medical problems. She was living in a mcc, was noted to have elevated white count. She was diagnosed with a large left empyema at [facility] and was transferred here for further evaluation and possible surgery. She underwent a bronchoscopy with left video-assisted thoracoscopy, left thoracotomy with decortication by Dr. Landa on 04/30/2021. She is currently in the ICU, has chest tubes in place. Reason for GI consultation at this time is for possible PEG tube. The patient has had a PEG tube in the past, which had been removed apparently was able to tolerate oral nutrition with a chopped diet at one point, she underwent a speech pathology evaluation yesterday and failed all consistencies, recommended n.p.o. and consider PEG tube for nutritional support. The patient is unable to give me any significant history. It appears that her sister is a durable power of senior attorney. She is currently not on any pressors at this time. REVIEW OF SYSTEMS: Very limited due to the patient's history of aphasia. PAST MEDICAL HISTORY: CVA with left-sided hemiplegia, hemiparesis, expressive aphasia. She has an ileostomy. She has had a PEG tube in the past, depression, anxiety, previous history of peptic ulcer disease, history of constipation, gastroesophageal reflux disease, arthritis, previous history of encephalopathy, bacterial meningitis, dysphagia, MRSA, chronic pain syndrome, baclofen pump insertion. Neuromuscular bladder dysfunction, history of urinary tract infections, osteoarthritis. ALLERGIES: No known drug allergies. MEDICATIONS: Insulin, Tylenol, potassium chloride, magnesium, Pepcid 20 mg b.i.d., vancomycin, fentanyl, nicardipine, MiraLax, Zofran, Zosyn, albuterol. PHYSICAL EXAMINATION: VITAL SIGNS: Temperature is 36.0, pulse 79, blood pressure is 105/54, respiratory rate 15, O2 sats are 98%. GENERAL: She appears very frail. She is able to try [place] [address] CONSULTATION Name: GIFTY VERDIN Room #: 251-P [facility] IN M.R.#: [id number] Admission: 04/29/21 Attend Phys: Daniele Menezes MD Discharge: Date of : 64 Report #: [id number] is awake. She is in no acute distress. HEENT: Sclerae nonicteric. Oropharynx is dry. NECK: Supple. CARDIOVASCULAR: Regular rate. CHEST: With decreased breath sounds bilaterally. She has 2 chest tubes in her left chest at this time. ABDOMEN: Soft, nondistended. Previous PEG tube incision is well healed. No ostomy at this point. EXTREMITIES: She has significant contractures of her left arm. Lower extremities, trace edema of the lower extremities. LABORATORY DATA: WBC is 16.3, hemoglobin 7.9, platelet count is 625. INR 1.3. Sodium 146, potassium 3.8, chloride 114, bicarbonate 21, BUN 5, creatinine 0.5, calcium 7.6, AST 14, ALT 11. COVID was negative. ASSESSMENT AND PLAN: Dysphagia. The patient with a previous history of PEG tube in the past was able to tolerate a chopped diet now with recent empyema, status post decortication surgery with chest tubes. She failed video swallow yesterday with all consistencies, appears her sister is a durable power of senior attorney. We will need to discuss possible PEG tube with her, could consider placing this on Wednesday. We will continue to follow. Thank you for allowing me to participate in her care. <ELECTRONICALLY SIGNED> By: Romulo Rodríguez MD 05/03/21 1401 0939 [id number] Romulo Rodríguez MD /nt
[2021-05-04] VITALS (22 sets, daily range): BP systolic 92–129; BP diastolic 31–74
[2021-05-04 05:57] LABS: HEMATOCRIT 26.5 % (37.0-47.0); HEMOGLOBIN 8.3 gm/dL (12.0-15.0); MCH 28.5 pg (26.0-34.0); MCHC 31.5 g/dL (28.0-37.0); MCV 90.7 fL (80.0-100.0); RBC 2.92 mil/uL (4.20-5.00); RDW 16.8 % (10.5-14.5); WBC 16.1 thou/uL (4.0-11.0)
[2021-05-04 06:07] LABS: CALCIUM 7.5 mg/dL (8.5-10.1); CREATININE 0.4 mg/dL (0.6-1.0); POTASSIUM 3.3 mmol/L (3.5-5.1)
--- NOTE | 2021-05-04 12:18 | NUR ---
A RIGHT #4F MIDLINE WAS PLACED PER HOSPITAL POLICY FOR ADDITIONAL ACCESS. THE VEIN TO CATHETER RATIO WAS LESS THAN 20%. THE LINE WAS TRIMMED TO 13CM AND ADVANCED WITHOUT DIFFICULTY. THE LINE WAS SECURED AND RELEASED FOR USE
[2021-05-05] VITALS (21 sets, daily range): BP systolic 95–147; BP diastolic 44–92
--- NOTE | 2021-05-05 06:00 | NUR ---
VSS REMAINS IN SINUS RHYTHM. LEFT LATERAL CHEST TUBES INTACT TOTAL OF 150 CC DRG TONIGHT. NPO FOR POSSIBLE PEG TUBE TODAY. DR NEEDS TO CALL AND DISCUSS WITH PTS SISTER AND GET CONSENT, PROGRESSING TOWARD GOALS
[2021-05-05 07:43] LABS: HEMATOCRIT 27.3 % (37.0-47.0); HEMOGLOBIN 8.7 gm/dL (12.0-15.0); MCH 28.1 pg (26.0-34.0); MCV 88.1 fL (80.0-100.0); RBC 3.09 mil/uL (4.20-5.00); RDW 16.8 % (10.5-14.5); WBC 12.6 thou/uL (4.0-11.0)
[2021-05-05 07:55] LABS: CALCIUM 7.6 mg/dL (8.5-10.1); CREATININE 0.5 mg/dL (0.6-1.0)
--- NOTE | 2021-05-05 11:47 | NUR ---
Discussed during los and unit rounds. Has left chest tube, possible going for peg tube placement today. Updates sent to [facility].
--- NOTE | 2021-05-05 12:10 | NUR ---
Nutrition: REC Pivot 1.5 at 20 mL/hr when able to use PEG, advance slowly to gaol 45 mL/hr
[2021-05-06] VITALS (20 sets, daily range): BP systolic 93–129; BP diastolic 53–77
[2021-05-06 04:34] LABS: HEMATOCRIT 26.8 % (37.0-47.0); HEMOGLOBIN 8.4 gm/dL (12.0-15.0); MCHC 31.2 g/dL (28.0-37.0); MCV 89.7 fL (80.0-100.0); RBC 2.99 mil/uL (4.20-5.00); RDW 16.7 % (10.5-14.5); WBC 10.2 thou/uL (4.0-11.0)
[2021-05-06 04:41] LABS: CALCIUM 7.9 mg/dL (8.5-10.1); CREATININE 0.4 mg/dL (0.6-1.0); POTASSIUM 3.3 mmol/L (3.5-5.1)
--- NOTE | 2021-05-06 11:08 | NUR ---
Pt remains in ICU. Chest tube in place. PEG placed yesterday and starting tube feedings slowly as tolerated. Update called to admissions at [facility]. Dc timeframe is uncertain. Will continue to follow. Case discussed in rounds.
--- NOTE | 2021-05-06 15:07 | PATH ---
[facility] [address] [place] [address] PATHOLOGY RPT PROCEDURE Name: SJ BEETrenton Raphael Room #: 251-P ADM IN M.R.#: [id number] Admission: 04/29/21 Date of : 64 Discharge: Report #: [id number] Path Case #: [id number] [facility] Accession Number: [id number] . 01 Material submitted: . pleura - LEFT PLEURAL PEEL. Modifiers: left . 01 Clinical history: . VIDEO ASSISTED THOROSCOPY BRONCHOSCOPY THORACOTOMY DECORTICATION OF LUNG WASHOUT CHEST EMPYMEA . 02 Diagnosis: Pleura and subpleural soft tissue ("pleural peel"): - Extensive necrosis with marked acute and chronic inflammation, fibrinopurulent exudate, recent remote hemorrhage consistent with necrotic empyema. (VIJAY:mela; 05/05/2021) CECILE 05/05/2021 1746 Local . 02 Comment: We find no evidence of malignancy in any of the tissue examined. (SWK:batter depositor; 05/05/2021) . 02 Electronically signed: . Gonzalez Casey MD, Pathologist NPI- [id number] . 01 Gross description: . The specimen is received in formalin, labeled "Maida Bee, left pleural peel" and consists of multiple tejada rubbery irregular and dusky tissues aggregating 11.0 x 9.0 x 2.2 cm without identifiable lung parenchyma present. Senior Database Administrator sections are submitted in 2 cassettes.([facility] [place]; 05/02/2021) DKA/DKA 05/02/2021 1054 Local . 02 Pathologist provided ICD-10: R09.1, R04.89, J85.0 . 02 CPT . 814132 Specimen Comment: A courtesy copy of this report has been sent to [phone] Specimen Comment: [phone], [place] [address] PATHOLOGY RPT PROCEDURE Name: MAIDA BEE Room #: 251-P [facility] IN M.R.#: [id number] Admission: 04/29/21 Date of : 64 Discharge: Report #: [id number] Path Case #: [id number] Specimen Comment: Report sent to , DR CARRILLO / DR DUQUE Performed at: 01 [facility] [address] [place] [address] [id number] MD West Lopez MD Phone: [phone] Performed at: [address] [id number] MD Gonzalez Casey MD Phone: [phone]
[2021-05-07] VITALS (21 sets, daily range): BP systolic 76–134; BP diastolic 38–80
--- NOTE | 2021-05-07 16:34 | NUR ---
PT ARRIVED ON THE UNIT AT APPROXIMATELY 1600. PT IS ON CONTACT PRECAUTIONS FOR MRSA AND APPROPRIATE PPE CART WAS PLACED OUTSIDE THE PATIENTS ROOM. PT WAS PLACED ON A WET WASH ASSEMBLER AND A SET OF VITALS WERE OBTAINED. ORIENTATION TO THE ROOM WAS PROVIDED AND PT NODDED IN AGREEMENT. IV TUBING WAS ASSESSED AND FLUIDS WERE CONTINUED AT THE ORDERED RATE. PEG TUBE WAS ASSESSED AND FEEDINGS WERE CONTINUED AT THE ORDERED RATE. ALL FOUR CHEST TUBES WERE ASSESSED AND CONNECTED TO SUCTION. TUBINGG WAS CHECKED FOR PATENCY. CASTORENA WAS ASSESSED AND IS DRAINING WELL. ALL DRESSINGS WERE CHANGED THIS MORNING PER ICU NURSE REPORT. PT HAS BOOTS AND IS BEING FREQUENTLY REPOSITIONED.
--- NOTE | 2021-05-07 16:48 | NUR ---
PT PROGRESSING TOWARD GOALS. PT SATS >96% ON RA, HR 80S, AND BP MAP >65. CHEST TUBES X4 HAD MINIMAL OUTPUT FOR THIS RN BEFORE TRANSFER. PT HAD A SMALL BM THAT WAS CLEANED UP PRIOR TO TRANSFER. THIS RN TALKED TO PT'S SISTER ABY X3 TODAY REGARDING PT STATUS AND PLAN OF CARE. AT 1410, THIS RN CALLED ABY TO UPDATE HER ON PT'S NEW ROOM NUMBER, CCU RM 204. URINE OUTPUT IS VERY GOOD WITH CASTORENA CATHETHER IN PLACE. PT IS TOLERATING TF PIVOT 1.5 @ GOAL OF 45. MAX RESIDUALS WERE 10 CC. PT HAD HARD TIME EXPRESSING NEEDS D/T CVA. PT WAS RESTLESS AND AGITATED AT TIMES THROUGHOUT THE DAY. PT WAS TRANSFERED TO CCU AT 1610 BY THIS RN.
[2021-05-07 18:41] LABS: URINE BILIRUBIN NEGATIVE (Negative); URINE BLOOD TRACE (Negative); URINE CLARITY CLEAR; URINE COLOR YELLOW; URINE GLUCOSE-RANDOM* NEGATIVE (Negative); URINE KETONES NEGATIVE (Negative); URINE LEUKOCYTES-REFLEX TRACE (Negative); URINE NITRITE-REFLEX NEGATIVE (Negative); URINE PROTEIN (DIPSTICK) NEGATIVE (Negative); URINE UROBILINOGEN 0.2 E.U./dl (0.2-1.0)
--- NOTE | 2021-05-08 01:08 | NUR ---
PT IS ALERT AND NODS HEAD AND ATTMEPS TO TALK SOMETIMES HARD TO UNDERSTAND PT HAS APHASIA WITH OLD STROKE NOTED AND LEFT ARM DOESNT MOVE. LUNGS CLEAR ON ROOM AIR. PT WATCHING TV THIS SHIFT. PAIN MEDS GIVEN AT ONE POINT APEARED IN PAIN WITH WOUNDS. DRESSING CHANGED TO COCCYX AND LEFT HIP. DAKINS. TOLERATING PEG FEEDINGS. PT HAS A CASTORENA YELLOW URINE. BOOTS SCDS ON BILATERAL. AWAKE MOST OF THE SHIFT. WITH NAPS IN BETWEEN NURSING CARE.
[2021-05-08 04:39] VITALS: BP 118/73
[2021-05-08 07:36] VITALS: BP 113/72
[2021-05-08 11:38] VITALS: BP 128/78
[2021-05-08 15:20] VITALS: BP 121/74
[2021-05-08 20:21] VITALS: BP 114/75
[2021-05-09 05:23] VITALS: BP 144/84
[2021-05-09 06:12] LABS: ABSOLUTE NEUTROPHILS 7.4 thou/uL (1.4-8.2); BASOPHILS 0.6 % (0.0-2.0); EOSINOPHILS 1.7 % (0.0-3.0); HEMATOCRIT 26.1 % (37.0-47.0); HEMOGLOBIN 8.4 gm/dL (12.0-15.0); LYMPHOCYTES 21.3 % (24.0-44.0); MCH 28.5 pg (26.0-34.0); MCV 89.2 fL (80.0-100.0); MONOCYTES 6.8 % (1.0-8.0); PLATELET COUNT 751 thou/uL (150-400); POLYS 69.6 % (36.0-66.0); RBC 2.93 mil/uL (4.20-5.00); WBC 10.7 thou/uL (4.0-11.0)
--- NOTE | 2021-05-09 06:40 | NUR ---
PATIENTS CARES WHERE ASSUMED AT SHIFT CHANGE. PATIENT WAS ASSESSED AND IV MEDS WHERE GIVEN. AT THE START OF MY SHIFT PATIENT PULLED OUT HER IV AND A PICC WAS PUT IN TO REPLACE IT. PATIENT PULLED HER IV LINE AND BROKE IT OFF. AT 0415 PATIENT WAS PLACED IN MITTENS TO STOP HER FROM PULLING THINGS. PLUS SHE HAS TWO CHEST TUBES AND NURSING CONCERNED THAT THEY TOO WOULD BE PULLED OUT. oRDER WAS OBTAINED BY Tien PIPER. CHENTE ALEJO WAS CALLED AND YELLOW SHEET WAS FILLED OUT. ROUNDS WHERE MADE. THE BED IS IN A LOW AND LOCKED POSITION, THE RAILS ARE UP.
[2021-05-09 06:47] LABS: ALBUMIN 1.3 g/dL (3.4-5.0); CREATININE 0.4 mg/dL (0.6-1.0); PHOSPHORUS 3.3 mg/dL (2.6-4.7); POTASSIUM 3.3 mmol/L (3.5-5.1); TOTAL BILIRUBIN 0.2 mg/dL (0.2-1.0); TOTAL PROTEIN 5.3 g/dL (6.4-8.2)
[2021-05-09 07:00] VITALS: BP 128/83
[2021-05-09 11:30] VITALS: BP 113/68
--- NOTE | 2021-05-09 12:44 | NUR ---
Rec order to discontinue IVF since pt has water flushes of 250ml every 6hr ordered.
--- NOTE | 2021-05-09 12:51 | NUR ---
CM REVIEWED CHART AND DISCUSSED WITH CARE TEAM. ANTICIPATE PT WILL BE HERE THROUGHT HE WEEKEND. PT STILL HAS CHEST TUBE WITH MODERATE DRAINAGE. PT IS LTC RESIDENT AT [facility]. THEY ARE HOLDING BED AND CAN ACCEPT ONCE PT IS MEDICALLY STABLE TO DISCHARGE. RAE SPOKE TO PTS LEGAL GUARDIAN PREET MOLEDamon AND SHE IS AWARE OF DC PLANNING. CM FOLLOWING FOR DC PLANNING.
[2021-05-09 15:30] VITALS: BP 118/73
--- NOTE | 2021-05-09 20:00 | NUR ---
Pt has been A&0x2. Unable to verbalize needs clearly. Mittens remained in place throughout shift as pt is sometimes impulsive and attempts to pull at lines. No current concerns. Continue to monitor.
[2021-05-09 20:15] VITALS: BP 104/58
[2021-05-10 04:45] VITALS: BP 125/73
[2021-05-10 08:06] VITALS: BP 119/70
--- NOTE | 2021-05-10 08:35 | NUR ---
ASSESSMENTS CHARTED, MEDS CHARTED GIVEN. PATIENT ARRIVED FROM ED HOLDING AT 0213 ALERT AND ORIENTED X 4. DENIED PAIN. ON MAINTENANCE FLUID AT 75ML/HR. ADMISSION PROCESS WAS STARTED, BUT PATIENT WAS ADMITTED TO THE WRONG ROOM. WHILE THAT WAS CORRECTED, PATIENT RELAXED IN ROOM. PATIENT C/O CHEST PAIN AN EKG WAS DONE, SPOKE WITH Tien PIPER,BRAILLE OPERATOR GOT STAT TROPONIN, OK FOR NITRO TABS IF BP WAS HIGH ENOUGH. 3 TABS WERE GIVEN, BLOOD PRESSURE REMAINED HIGH PAIN WENT FROM 9 TO ZERO. SHORTLY AFTER PAIN RETURNED VERY SHORTLY THEN WENT AWAY. PATIENT ALSO BECAME CONFUSED, AND REFUSED TO BELIEVE HE WAS STILL IN [facility]. DID NOT BELIEVE I WAS A NURSE. BY END OF SHIFT HE ADMITTED THAT HE WAS IN THE HOSPITAL AND THAT HE DID THE SAME THING 3 YEARS AGO WHEN HE WAS IN THE HOSPITAL. REPORT WAS GIVEN TO DAY SHIFT NURSE AT SHIFT CHANGE.
--- NOTE | 2021-05-10 08:56 | NUR ---
ASSESSMENTS CHARTED, MEDS CHARTED GIVEN. PATIENT RESTING IN BED DURING SHIFT. PATIENT STARTED SHIFT IN MITTENS ON BOTH HANDS, LEFT HAND MITTEN WAS REMOVED DUE TO LEFT HAND AND ARM CONTRACTED, LEFT SIDED WEAKNESS. RT UPPER ARM DOUBLE PICC WITH MAINTENANCE FLUIDS RUNNING. PRESSURE WOUNDS WERE DRESSED AFTER BOWEL MOVEMENT, 4 CT LINES GOING INTO 2 ATRIUMS, MINIMAL OUTPUT. CONTINUED CARE. REPORT WAS GIVEN TO DAY NURSE AT SHIFT CHANGE AT PATIENT BEDSIDE.
--- NOTE | 2021-05-10 09:38 | O ---
[facility] [place] [address] OPERATIVE REPORT Name: GIFTY VERDIN Room #: 204-P ADM IN M.R.#: [id number] Admission: 04/29/21 Attend Phys: Daniele Menezes MD Discharge: Date of : 64 Report #: [id number] THIS REPORT FOR: cc: Rich Wong,Rich Mayfield,Jeff Mckinnon MD ~ DATE OF SERVICE: 05/01/2021 PREOPERATIVE DIAGNOSIS: Empyema, left chest. POSTOPERATIVE DIAGNOSIS: Empyema, left chest. OPERATION: Bronchoscopy, left video-assisted thoracoscopy, left thoracotomy with decortication. SURGEON: Jeff Landa MD WINDOW INSTALLER: MUSTAPHA Ellis. ANESTHESIA: General. INDICATIONS: The patient is a 60-year-old saint from [place]. The patient resides chronically in a [facility] facility, status post cerebrovascular vascular accident in his left with hemiplegia and expressive aphasia. The patient was found to have large loculated left pleural effusion, presented as a complete whiteout on a chest x-ray along with an elevated white blood cell count, indicative of empyema. FINDINGS AND TECHNIQUE: After general anesthesia was established, flexible diagnostic bronchoscopy was performed. No endobronchial lesions were noted. A double lumen endotracheal tube was placed and the patient was positioned with left side up. Exposure was obtained through video-assisted thoracoscopy ports. The left chest was found to be full of foul-smelling purulent fluid, but the lung itself was trapped by a thick scar. The intense involvement of the lung necessitated thoracotomy to attempted decortication. Even at that the pleural peel was very thick we applied and the lung and was clearly a chronic and difficult to remove. Dissection of the entire lung visceral pleural surface was attempted, but in many areas, the pleura was too thick for a satisfactory plane. The chest was irrigated with copious amounts of saline and when we had decorticated the lung to the best of our ability, chest tubes were placed to drain the anterior, lateral, posterior, and inferior pleural surfaces. [facility] [address] [place] [address] OPERATIVE REPORT Name: GIFTY VERDIN Room #: 204-P [facility] IN M.R.#: [id number] Admission: 04/29/21 Attend Phys: Daniele Menezes MD Discharge: Date of : 64 Report #: [id number] chest was then closed in the usual fashion. Of course, material was sent for culture and for pathology. The patient tolerated all those well and was taken to the recovery area in good condition. <ELECTRONICALLY SIGNED> By: Jeff Landa MD 05/10/21 [id number] [id number] Jeff Landa MD /nt
--- NOTE | 2021-05-10 09:38 | HC ---
[facility] [place] [address] CONSULTATION Name: GIFTY VERDIN Room #: 204-P ADM IN M.R.#: [id number] Admission: 04/29/21 Attend Phys: Daniele Menezes MD Discharge: Date of : 64 Report #: [id number] THIS REPORT FOR: cc: Rich Wong James L. DO Forman, John M. MD ~ DATE OF SERVICE: 04/30/2021 We were asked to see the patient by Dr. Menezes. HISTORY OF PRESENT ILLNESS: The patient is a 60-year-old sent from [place]. The patient had been seen by Dr. Coulter at that facility and found to have a large loculated left pleural effusion, suspicious for empyema. The patient is a [facility] facility with a history of stroke and left hemiplegia and expressive aphasia. The patient was found to have elevated white blood cell count of 21,000 and in the Emergency Department, a large left pleural effusion was identified. It appears that a thoracentesis was done and approximately 90 mL of fluid was obtained, but the effusion is persistent with a near complete opacification of the left chest. Antibiotics were started and the patient was transferred to this facility. 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 ALLERGIES: SULFA, CODEINE. MEDICATIONS: Include famotidine, Zofran, vitamins and additives. REVIEW OF SYSTEMS: The patient is not communicative. Review of systems is from chart. PHYSICAL EXAMINATION: GENERAL: The patient is lying in bed, appears to respond and understand, but is not communicative. VITAL SIGNS: Temperature of 36.7, heart rate 80, respiratory rate 16, blood pressure 103/62, O2 sat 95 on room air. HEENT: No scleral icterus. No arcus. NECK: No mass, no bruit. CHEST: Decreased sounds, left chest. HEART: Rhythm regular. EXTREMITIES: No clubbing, cyanosis or edema. Upper extremities are somewhat contracted and with left-sided atrophy. Lower extremities somewhat contracted. SKIN: No rash or infection. NEUROLOGIC: Left hemiparesis and expressive aphasia, appears to be oriented and [facility] [address] [place] [address] CONSULTATION Name: GIFTY VERDIN Room #: 204-P ADM IN [facility].#: [id number] Admission: 04/29/21 Attend Phys: Daniele Menezes MD Discharge: Date of : 64 Report #: [id number] appropriate despite communication issues. ASSESSMENT AND PLAN: The patient has a large loculated left pleural effusion. I have discussed our approach to this. This would include bronchoscopy, left video-assisted thoracoscopy with possible thoracotomy and decortication, extent of surgery would depend on the extent and stage of the intrapleural or intrathoracic process. Risks and details were discussed. These include but are not limited to bleeding, infection, anesthesia risks, but clearly the best prospect for reexpansion of the left lung would be this invasive approach, which is the essence of the transfer to this facility. The patient appears to understand surgery, if done, will be tomorrow, and I will try to schedule it. Thank you for the consult. <ELECTRONICALLY SIGNED> By: Jeff Landa MD 05/10/21 0938 [id number] Jfef Landa MD /nt
--- NOTE | 2021-05-10 10:39 | NUR ---
TOOK OVER CARE OF THIS PATIENT AT 0700. BEDSIDE SHIFT REPORT COMPLETED. PT ALERT AND COOPERATIVE; PT IS NONVERBAL BUT CAN SHAKE HEAD AT TIMES. RIGHT HAND MITTEN IN PLACE DUE TO HX OF PULLING OUT LINES. ORAL CARE PROVIDED TO PATIENT WITH SWABS; MOUTH VERY DRY AND MOISTURE APPLIED. WOUND DRESSINGS CHANGED; CDI. PT ON ROOM AIR; DOES NOT APPEAR IN DISTRESS AT THIS TIME. NO SIGNS OF PAIN NOTED. REPOSITIONED PATIENT AND EXTREMITIES ELEVATED. TUBE FEEDING CONTINUED AT GOAL RATE. SPOKE WITH PATIENT'S SISTER REGARDING POC.
[2021-05-10 11:56] VITALS: BP 117/70
--- NOTE | 2021-05-10 14:35 | NUR ---
PT SCHEDULED TO HAVE CT SCAN COMPLETED PER DOCTORS ORDERS. PAIN MEDICATION ADMINISTERED PRE-PROCEDURE. CHEST TUBES HOOKED UP TO -20 SUCTION DURING PROCEDURE.
[2021-05-10 15:06] VITALS: BP 114/70
--- NOTE | 2021-05-10 16:14 | NUR ---
CALLED CT REGARDING PATIENT'S CT SCAN PROCEDURE TIME FRAME. CT DEPARTMENT DID NOT ANSWER. I WAS TOLD BY VERONICA IN RADIOLOGY THAT THEY WOULD CALL BACK.
[2021-05-10 19:32] VITALS: BP 105/71
[2021-05-11 04:42] VITALS: BP 113/68
--- NOTE | 2021-05-11 06:25 | NUR ---
ASSESSMENTS CHARTED, MEDS CHARTED GIVEN. PATIENT IS OUT OF MITTENS AT THE START OF SHIFT. TURNED OFTEN POSSIBLE. MOUTH SWABBED WITH EACH VISIT INTO THE ROOM. CONTINUE PLAN OF CARE
[2021-05-11 08:13] VITALS: BP 118/72
[2021-05-11 08:19] LABS: ABSOLUTE NEUTROPHILS 7.6 thou/uL (1.4-8.2); BASOPHILS 0.6 % (0.0-2.0); EOSINOPHILS 2.6 % (0.0-3.0); HEMATOCRIT 23.8 % (37.0-47.0); HEMOGLOBIN 7.6 gm/dL (12.0-15.0); LYMPHOCYTES 21.8 % (24.0-44.0); MCH 28.7 pg (26.0-34.0); MCV 89.5 fL (80.0-100.0); MONOCYTES 6.3 % (1.0-8.0); PLATELET COUNT 701 thou/uL (150-400); POLYS 68.7 % (36.0-66.0); RBC 2.66 mil/uL (4.20-5.00); WBC 11.1 thou/uL (4.0-11.0)
[2021-05-11 08:26] LABS: ALBUMIN 1.4 g/dL (3.4-5.0); CALCIUM 7.9 mg/dL (8.5-10.1); CREATININE 0.4 mg/dL (0.6-1.0); MAGNESIUM 2.3 mg/dL (1.8-2.4); PHOSPHORUS 3.7 mg/dL (2.6-4.7); POTASSIUM 3.8 mmol/L (3.5-5.1); TOTAL BILIRUBIN 0.2 mg/dL (0.2-1.0); TOTAL PROTEIN 5.8 g/dL (6.4-8.2)
[2021-05-11 11:56] VITALS: BP 111/64
[2021-05-11 12:04] VITALS: BP 85/45
[2021-05-11 15:43] VITALS: BP 115/68
[2021-05-11 19:53] VITALS: BP 110/65
[2021-05-12 04:36] VITALS: BP 107/62
--- NOTE | 2021-05-12 05:18 | NUR ---
RECEIVED PATIENT AT 1900H.ASSESSMENT DONE CHARTED.MEDS GIVEN PER.TURNING DONE.FALL PREVENTION MEASURES MAINTAINED.ALL NEEDS ATTENDED.TO CONTINOUSLY MONITOR.
[2021-05-12 07:30] VITALS: BP 93/64
[2021-05-12 10:07] LABS: HEMATOCRIT 24.5 % (37.0-47.0); HEMOGLOBIN 7.8 gm/dL (12.0-15.0)
[2021-05-12 10:30] LABS: CALCIUM 8.1 mg/dL (8.5-10.1); CREATININE 0.5 mg/dL (0.6-1.0); POTASSIUM 3.8 mmol/L (3.5-5.1)
[2021-05-12 11:20] VITALS: BP 105/64
--- NOTE | 2021-05-12 14:10 | NUR ---
CM REVIEWED CHART AND DISCUSSED WITH CARE TEAM. PT HAS NEW PEG TUBE. ALSO STILL HAS CHEST TUBE THAT CONTINUES TO LEAK. PT IS LTC RESIDENT AT [facility]. THEY ARE HOLDING BED AND CAN ACCEPT ONCE PT IS MEDICALLY STABLE TO DISCHARGE. DISCUSSED WITH PHYSICIAN ABOUT SPEAKING TO PTS LEGAL GUARDIAN PREET VILLEGAS REGARDING PTS WORSENING NUTRITIONAL STATUS AND DEBILITY. CM CALLED TO SPEAK TO PREET PTS LEGAL GUARDIAN ALTHOUGH UNABLE TO REACH OR LM. CM AWAITING FOR FURTHER RECOMMENDATIONS ON PLAN OF CARE FOR DICHARGE PLANNING.
--- NOTE | 2021-05-12 14:20 | NUR ---
PTS LEGAL GUARDIAN PREET CALLED CM BACK AT THIS TIME. UPATED ON PT CONDITIONS AND ANSWERED QUESTIONS. THERE WAS CONCERN PT WAS NOT WEARING HER HAND MEDICAL REFERRAL COORDINATOR BRACE OR IMMOBLIZER TO ARM. IF PT DOES NOT WEAR IT SHE HER ARM CONTRACTS TO THE CHEST. PREET INFORMED THIS CM SHE SPOKE TO NURSING STAFF WHO INDICATED THEY WOULD PLACE WASH CLOTH IN PTS LEFT HAND TO PREVENT CONTRACTURE. SPENT SOME TIME LISTENING AND PROVIDING SUPPORT REGARDING CARES PT HAD OVER A LENGTHY TIME PERIOD. PTS SISTER PREET AND ABY VERY INVOLVED IT PT CARES. PREET ALSO CONCERNED PTS LIPS WERE VERY DRY. DISCUSSED MOISTENED SWABS TO ASSIST. SHE AGREED AND INDICATED THEY WERE AT PTS BEDSIDE. PREET CONCERNED PT IS DEPRESSED WELL. SHE INFORMED CM PT USUALLY TALKS TO SISTER 2-3 A DAY. NOW PT JUST LOOKS OR STARES AT THEM. SHE CHARGED PT PHONE YESTERDAY AND CALLED PT THIS MORNING. PT DID NOT TALK BACK DURING CONVERSATION. PREET INFORMED THEM TALKING USED TO HELP PT SO MUCH NOW SHE IS NOT INTERACTIVE IN TALKING BACK. WILL CONTINUE TO DISCUSS TO CARE TEAM AND FOLLOW FOR DC PLANNING.
[2021-05-12 15:30] VITALS: BP 112/66
[2021-05-12 19:19] VITALS: BP 119/87
[2021-05-13 03:33] VITALS: BP 111/68
[2021-05-13 05:06] LABS: ABSOLUTE NEUTROPHILS 7.3 thou/uL (1.4-8.2); BASOPHILS 0.4 % (0.0-2.0); EOSINOPHILS 2.6 % (0.0-3.0); HEMOGLOBIN 7.3 gm/dL (12.0-15.0); MCH 29.7 pg (26.0-34.0); MCHC 33.2 g/dL (28.0-37.0); MCV 89.4 fL (80.0-100.0); MONOCYTES 7.2 % (1.0-8.0); POLYS 67.8 % (36.0-66.0); RBC 2.47 mil/uL (4.20-5.00); RDW 18.9 % (10.5-14.5); WBC 10.7 thou/uL (4.0-11.0)
[2021-05-13 05:18] LABS: PLATELET COUNT 608 thou/uL (150-400)
[2021-05-13 05:48] LABS: CALCIUM 7.9 mg/dL (8.5-10.1); CREATININE 0.4 mg/dL (0.6-1.0); MAGNESIUM 2.4 mg/dL (1.8-2.4); PHOSPHORUS 3.7 mg/dL (2.5-4.9); POTASSIUM 3.7 mmol/L (3.5-5.1)
--- NOTE | 2021-05-13 06:56 | NUR ---
PT RESTING IN BED THROUGHOUT THE NIGHT. ALERT, NON VERBAL. REMAINS CONTRACTED NECK AND R ARM, L SIDE WEAKNESS. CASTORENA TO DD. IVF INTACT. PICC BRIAN INTACT. DRESSINGS ON SACRUM INTACT. CHANGED. DRAINAGE YELLOW PURULENT. PRAFO BOOTS ON. TFEEDING INTACT. NPO. BED ALARM ON.
[2021-05-13 07:20] VITALS: BP 113/57
--- NOTE | 2021-05-13 11:05 | NUR ---
RAE SPOKE TO SREE WITH [facility] THIS DAY. SREE REQUESTING INFORMATION ON TUBE FEEDING IN PREPARATION OF HER RETURN TO FACILITY. CM REVIEWED AND DISCUSSED. CLINICAL UPDATES FAXED ALONG WITH TUBE FEEDINGS GOALS. RAE WILL CONTINUE TO FOLLOW FOR DC PLANNING.
[2021-05-13 11:20] VITALS: BP 102/63
[2021-05-13 15:45] VITALS: BP 108/64
--- NOTE | 2021-05-13 17:04 | NUR ---
CHEST TUBES X4 WERE REMOVED THIS MORNING. THE PATIENT REMAINS STABLE AND NO NEW PNEUMOTHORAX WAS IDENTIFIED IN A FOLLOW-UP CXR. TUBE FEEDING REMAINS AT GOAL BUT THE PT IS NOT YET HAVING BOWEL MOVEMENTS. NO S/S OF ABDOMINAL DISCOMFORT NOTED AT THIS TIME. NO PROGRESSION NOTED TO WOUNDS.
[2021-05-13 20:15] VITALS: BP 126/62
[2021-05-14 04:45] VITALS: BP 98/76
[2021-05-14 06:00] LABS: HEMATOCRIT 23.3 % (37.0-47.0); HEMOGLOBIN 7.6 gm/dL (12.0-15.0); MCH 29.3 pg (26.0-34.0); MCHC 32.5 g/dL (28.0-37.0); MCV 90.2 fL (80.0-100.0); RBC 2.58 mil/uL (4.20-5.00); RDW 20.5 % (10.5-14.5)
[2021-05-14 06:09] LABS: CALCIUM 8.2 mg/dL (8.5-10.1); CREATININE 0.4 mg/dL (0.6-1.0); POTASSIUM 3.8 mmol/L (3.5-5.1)
--- NOTE | 2021-05-14 07:31 | NUR ---
assessments as charted, oral care and repositioning frequently, tf infusing @ goal with h2o flushes, dresings remain cdi, tried to place rolled wash cloth in contracted left hand and she bit it out of her hand, removed from mouth, prn pain med given with c/o back pain, iv fluids infusing thru picc and labs drawn this am report given to next shift to con't ppoc.
[2021-05-14 07:40] VITALS: BP 101/63
[2021-05-14 11:20] VITALS: BP 105/59
[2021-05-14] MEDS ORDERED: HYDROCODON-ACE1 EAC7 PO (12:25)
[2021-05-14] MEDS ORDERED: FERROUS SU220 MG/52 PER TUBE (12:25)
[2021-05-14] MEDS ORDERED: AUGMENTIN 500-1 EACH PER TUBE (12:29)
--- NOTE | 2021-05-14 14:37 | NUR ---
PATIENT MEDICALLY STABLE TO DC THIS DAY. CM SPOKE TO VANCOUVER AT [facility]. SHE INIDICATED BY TIME PT ARRIVES LATE IN DAY THEY WILL NOT HAVE TIME TO RECEIVE MEDICATIONS AND TUBE FEEDING HAS NOT ARRIVED TO FACILITY AT THIS TIME. THEREFORE, PT WILL DISCHARGE IN AM. TRANSPORT VIA STRETCHER SET UP FOR 9AM. VANCOUVER WITH [facility] AWARE. CM SPOKE TO LEGAL GUARDIAN PREET VILLEGAS AND SHE IS ALSO AWARE. PHYSICIAN AWARE. CHART COPY REQUEST MADE. NO FURTHER CM INTERVENTIONS NEEDED AT THIS TIME.
[2021-05-14 15:40] VITALS: BP 104/61
[2021-05-14 19:46] VITALS: BP 121/78
[2021-05-15 04:56] VITALS: BP 100/59
--- NOTE | 2021-05-15 05:05 | NUR ---
CARES CHARTED. TOOK OVER CARE AT 0415 DID I & O'S, REPOSITIONED PATIENT AND GAVE HER A WARM BLANKET. CARES TO CONTINUE.
--- NOTE | 2021-05-15 09:39 | NUR ---
PT ALERT AND ORIENTED X 1. MOSTLY NONVERBAL. ANSWERS Y/N QUESTIONS. C/O PAIN. PAIN MED GIVEN, ORDER OBTAINED TO DC PICC FOR DISCHARGE. TUBE FEEDING SENT WITH PATIENT FOR FACILITY USE ONCE PT THERE. REPORT CALLED. CASTORENA WITH MINOR LEAK, CLEANED UP AND SENT VIA AMBULANCE TO FACILITY.
[2021-05-15 09:44] VITALS: BP 100/59
== END 2021-05-15 10:22 | DRG 853 ==
LOC: 2N 22:02 → ICU 23:13 → 2N 05-07 16:01
PROVIDERS: Hospitalist; Internal Medicine; Nurse Practitioner Family; Physician Assistant; Specialist; ADMIT Internal Medicine; ATTEND Internal Medicine
DX: A41.9 Sepsis, unspecified organism (principal); E43 Unspecified severe protein-calorie malnutrition; J86.9 Pyothorax without fistula; L89.154 Pressure ulcer of sacral region, stage 4; J96.01 Acute respiratory failure with hypoxia; J90 Pleural effusion, not elsewhere classified; I69.354 Hemiplegia and hemiparesis following cerebral infarction affecting left non-dominant side; N39.0 Urinary tract infection, site not specified; J98.11 Atelectasis; G93.49 Other encephalopathy; D62 Acute posthemorrhagic anemia; C34.92 Malignant neoplasm of unspecified part of left bronchus or lung; L89.210 Pressure ulcer of right hip, unstageable; Z88.2 Allergy status to sulfonamides; K21.9 Gastro-esophageal reflux disease without esophagitis; Z88.8 Allergy status to other drugs, medicaments and biological substances; Z68.25 Body mass index [BMI] 25.0-25.9, adult; D63.1 Anemia in chronic kidney disease; B96.89 Other specified bacterial agents as the cause of diseases classified elsewhere; B95.62 Methicillin resistant Staphylococcus aureus infection as the cause of diseases classified elsewhere; F41.9 Anxiety disorder, unspecified; F32.A Depression, unspecified; E87.6 Hypokalemia; I69.398 Other sequelae of cerebral infarction; I69.320 Aphasia following cerebral infarction; G89.4 Chronic pain syndrome; Z20.822 Contact with and (suspected) exposure to COVID-19; J43.9 Emphysema, unspecified
CPT/HCPCS: 10078; 10081; 27000; 47405; 50010; 50101; 50386; 50403; 50455; 50607; 50649; 51301; 52265; 54118; 56524; 56525; 56526; 56527; 56528; 58585; 62110; 62900; 65129; 70005; 85076